=== PATIENT | male | born 1985 | race Caucasian/White ===

== ENCOUNTER 2018-01-01 08:58 | Observation (INO) | payer BC ==
[2018-01-01] MEDS: IOHEXOL 350 MG/ML 10 ML VIAL (for RAD DIAG) IVCONTRAST (08:59)
[2018-01-01 10:02] LABS: AUTOMATED NEUTROPHIL # 4.1 TH/MM3 (1.8-7.7); BASOPHIL % 0.4 % (0.0-2.0); EOSINOPHIL # 0.1 TH/MM3 (0-0.4); HEMATOCRIT 34.6 % (39.0-51.0); HEMO FLAGS DIFF FINAL; HEMOGLOBIN 11.9 GM/DL (13.0-17.0); LYMPH % 25.4 % (9.0-44.0); LYMPHOCYTE # 1.6 TH/MM3 (1.0-4.8); MEAN CELL VOLUME 86.2 FL (80.0-100.0); MEAN CORPUSCULAR HEMOGLOBIN 29.6 PG (27.0-34.0); MEAN CORPUSCULAR HGB CONC 34.4 % (32.0-36.0); MONO % 5.6 % (0.0-8.0); MONOCYTE # 0.3 TH/MM3 (0-0.9); NEUT % 66.6 % (16.0-70.0); PLATELET COUNT 358 TH/MM3 (150-450); RED BLOOD COUNT 4.01 MIL/MM3 (4.50-5.90); RED CELL DISTRIBUTION WIDTH 13.9 % (11.6-17.2); WHITE BLOOD COUNT 6.1 TH/MM3 (4.0-11.0)
[2018-01-01] MEDS: ONDANSETRON HCL 4 MG/2 ML VIAL IV PUSH (10:14)
[2018-01-01] MEDS: HYDROmorphone HCL PF 2 MG/ML VIAL IV PUSH ×2 (10:15→11:40)
[2018-01-01] MEDS: diphenhydrAMINE HCL 50 MG/ML VIAL IV PUSH ×4 (10:15→21:40)
[2018-01-01 10:20] LABS: ALBUMIN 3.9 GM/DL (3.4-5.0); ANION GAP 6 MEQ/L (5-15); AST (GOT) 18 U/L (15-37); BICARBONATE 26.9 MEQ/L (21.0-32.0); BLOOD UREA NITROGEN 16 MG/DL (7-18); CALCIUM 8.8 MG/DL (8.5-10.1); CHLORIDE 107 MEQ/L (98-107); CREATININE 0.81 MG/DL (0.60-1.30); GLOMERULAR FILTRATION RATE 111 ML/MIN (>89); GLUCOSE,RANDOM 93 MG/DL (74-106); POTASSIUM 3.9 MEQ/L (3.5-5.1); SODIUM (NA) 140 MEQ/L (136-145)
[2018-01-01 10:21] LABS: ALT (GPT) 23 U/L (12-78)
[2018-01-01 10:23] LABS: ALKALINE PHOSPHATASE 77 U/L (45-117); PROTHROMBIN TIME - PATIENT 10.8 SEC (9.8-11.6); TOTAL BILIRUBIN ADULT 0.4 MG/DL (0.2-1.0); TOTAL PROTEIN 7.2 GM/DL (6.4-8.2)
[2018-01-01 10:24] LABS: APTT (PATIENT) 71.7 SEC (24.3-30.1); INTERNATIONAL NORMALIZED RATIO 1.1 RATIO
[2018-01-01] MEDS: diphenhydrAMINE HCL 25 MG CAP PO (12:01)
[2018-01-01] MEDS ORDERED: MAGNESIUM HYDROXIDE SUSP 30 ML CUP PO (13:45)
[2018-01-01] MEDS ORDERED: LACTULOSE SYRUP 20 GM/30 ML CUP PO (13:45)
[2018-01-01] MEDS ORDERED: BISACODYL 10 MG SUPP RECTAL (13:45)
[2018-01-01] MEDS ORDERED: ONDANSETRON HCL 4 MG/2 ML VIAL IVP (13:45)
[2018-01-01] MEDS ORDERED: NALOXONE HCL 0.4 MG/ML AMP IV PUSH (13:45)
[2018-01-01] MEDS ORDERED: SENNOSIDES 8.6 MG TAB PO (13:45)
[2018-01-01] MEDS ORDERED: ACETAMINOPHEN 325 MG TAB PO (13:45)
[2018-01-01] MEDS ORDERED: TEMAZEPAM 15 MG CAP PO (13:45)
[2018-01-01] MEDS ORDERED: diphenhydrAMINE HCL 50 MG/ML VIAL IV PUSH (14:00)
[2018-01-01] MEDS ORDERED: HYDROmorphone HCL PF 4 MG/ML VIAL IV PUSH (14:00)
[2018-01-01] MEDS: HYDROmorphone HCL PF 4 MG/ML VIAL IV PUSH ×2 (15:10→18:42)
[2018-01-01] MEDS: SODIUM CHLORIDE 0.9% FLUSH 10 ML FLUSH IV FLUSH (21:40)
[2018-01-01] MEDS: DOCUSATE SODIUM 50 MG/SENNA 8.6 MG TAB PO (21:40)
[2018-01-01] MEDS: ZOLPIDEM TARTRATE 10 MG TAB PO (21:40)
[2018-01-01] MEDS: [UNRECOGNIZED DRUG - REMARK] IV (22:40)
[2018-01-02] MEDS: diphenhydrAMINE HCL 50 MG/ML VIAL IV PUSH ×6 (01:53→20:37)
[2018-01-02] MEDS: HYDROmorphone HCL PF 4 MG/ML VIAL IV PUSH ×3 (01:54→08:23)
[2018-01-02] MEDS ORDERED: [UNRECOGNIZED DRUG - OTHER] IV (06:00)
[2018-01-02 07:00] LABS: AUTOMATED NEUTROPHIL # 3.2 TH/MM3 (1.8-7.7); BASOPHIL % 0.4 % (0.0-2.0); EOSINOPHIL # 0.2 TH/MM3 (0-0.4); EOSINOPHIL % 3.1 % (0.0-4.0); HEMATOCRIT 37.3 % (39.0-51.0); HEMO FLAGS DIFF FINAL; HEMOGLOBIN 12.5 GM/DL (13.0-17.0); LYMPH % 39.7 % (9.0-44.0); LYMPHOCYTE # 2.6 TH/MM3 (1.0-4.8); MEAN CELL VOLUME 87.1 FL (80.0-100.0); MEAN CORPUSCULAR HEMOGLOBIN 29.3 PG (27.0-34.0); MEAN CORPUSCULAR HGB CONC 33.6 % (32.0-36.0); MONO % 6.8 % (0.0-8.0); MONOCYTE # 0.4 TH/MM3 (0-0.9); PLATELET COUNT 367 TH/MM3 (150-450); RED BLOOD COUNT 4.28 MIL/MM3 (4.50-5.90); RED CELL DISTRIBUTION WIDTH 14.4 % (11.6-17.2); WHITE BLOOD COUNT 6.4 TH/MM3 (4.0-11.0)
[2018-01-02 07:26] LABS: ANION GAP 7 MEQ/L (5-15); BICARBONATE 28.6 MEQ/L (21.0-32.0); BLOOD UREA NITROGEN 21 MG/DL (7-18); CALCIUM 9.5 MG/DL (8.5-10.1); CHLORIDE 103 MEQ/L (98-107); CREATININE 0.96 MG/DL (0.60-1.30); GLOMERULAR FILTRATION RATE 91 ML/MIN (>89); GLUCOSE,RANDOM 92 MG/DL (74-106); POTASSIUM 3.9 MEQ/L (3.5-5.1); SODIUM (NA) 139 MEQ/L (136-145)
[2018-01-02 07:32] LABS: APTT (PATIENT) 30.6 SEC (24.3-30.1)
[2018-01-02] MEDS: [UNRECOGNIZED DRUG - REMARK] IV (07:38)
[2018-01-02] MEDS: SODIUM CHLORIDE 0.9% FLUSH 10 ML FLUSH IV FLUSH ×8 (08:22→20:36)
[2018-01-02] MEDS: DOCUSATE SODIUM 50 MG/SENNA 8.6 MG TAB PO ×2 (08:22→22:35)
[2018-01-02] MEDS: HYDROmorphone HCL PF 2 MG/ML VIAL IV PUSH ×6 (11:28→23:06)
[2018-01-02] MEDS ORDERED: ANTIHEMOPHILIC FACTOR VIII IV (21:00)
[2018-01-02] MEDS ORDERED: [UNRECOGNIZED DRUG - REMARK] IV (21:00)
[2018-01-02] MEDS: oxyCODONE HCL 20 MG CONTROLLED RELEASE TAB PO (22:35)
[2018-01-02] MEDS: ANTIHEMOPHILIC FACTOR VIII IV (22:36)
[2018-01-02] MEDS: ZOLPIDEM TARTRATE 10 MG TAB PO (23:05)
[2018-01-03] MEDS: HYDROmorphone HCL PF 2 MG/ML VIAL IV PUSH ×4 (02:40→11:31)
[2018-01-03] MEDS: diphenhydrAMINE HCL 50 MG/ML VIAL IV PUSH ×2 (02:40→08:00)
[2018-01-03] MEDS: SODIUM CHLORIDE 0.9% FLUSH 10 ML FLUSH IV FLUSH ×3 (07:59→11:30)
[2018-01-03] MEDS: DOCUSATE SODIUM 50 MG/SENNA 8.6 MG TAB PO (09:33)
[2018-01-03] MEDS: ANTIHEMOPHILIC FACTOR VIII IV (09:33)
[2018-01-03] MEDS: oxyCODONE HCL 40 MG CONTROLLED RELEASE TAB PO (10:05)
[2018-01-05 11:50] LABS: FACTOR VIII(8) ACTIVITY-I 66 (50-180); FACTOR VIII(8) INHIB EIA NEGATIVE (NEGATIVE); NIJMEGEN ASSAY ND BETHESDA (<0.6)
== END 2018-01-03 12:49 | disposition home or self-care (01) ==
LOC: NEPE 08:58 → NEDA 12:46 → NEPHCDU 14:17
DX: M25.022 Hemarthrosis, left elbow (principal); S30.1XXA Contusion of abdominal wall, initial encounter; D66 Hereditary factor VIII deficiency; Z87.442 Personal history of urinary calculi; Z96.652 Presence of left artificial knee joint
CPT/HCPCS: 73080; 73221; 74177; 80048; 80053; 85025; 85240; 85335; 85610; 85730; 96374; 96375; 96376; 99285-25

== ENCOUNTER 2018-01-23 19:49 | Observation (INO) | payer BC ==
[~2018-01-23 19:49] MED LIST: AMBI10TA PO; ANTI IV; OXYC-395 PO; OXYC40TA20 PO
[2018-01-23 19:52] VITALS: BP 154/76; PULSE 100; RESP 18; TEMP 98.7; O2SAT 100
--- NOTE | 2018-01-23 20:08 | PD ---
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 The patient reports having had several hemarthroses in the past. This 1 started spontaneously 2 days ago. He gave himself recombinant factor VIII (Advate) over the last 3 days, last dose was earlier this morning. His pain is severe, 10 out of 10, constant, sharp/pressure-like, worse with movements, uncontrolled with at home pain medications. He denies fevers. No abdominal pain. No pain in any other joint or extremity. PFSH Past Medical History Blood Disorders: Yes (Hemophelia Type A) Cancer: No Cardiovascular Problems: No Diminished Hearing: No Endocrine: No Genitourinary: No Implanted Vascular Access Dvce: Yes (right leg) Musculoskeletal: No Neurologic: No Psychiatric: No Reproductive: No Respiratory: No Immunizations Current: Yes Past Surgical History Genitourinary Surgery: Yes (KIDNEY STONES) Other Surgery: Yes (left knee (X3) & right elbow (X2)) Social History Alcohol Use: Yes Tobacco Use: No Substance Use: No Allergies-Medications (Allergen,Severity, Reaction): Coded Allergies: NSAIDS (Non-Steroidal Anti-Inflamma (Verified Allergy, Intermediate, ) aspirin (Verified Allergy, Intermediate, 01/23/18) codeine (Verified Allergy, Intermediate, 01/23/18) morphine (Verified Allergy, Intermediate, 01/23/18) Sulfa (Sulfonamide Antibiotics) (Verified Allergy, Unknown, 01/23/18) Can't have d/t the hemophelia; no reaction Reported Meds & Prescriptions Reported Meds & Active Scripts Active Oxycodone (Oxycodone HCl) 10 Mg Tab 10 Mg PO Q4H PRN 5 Days Ambien (Zolpidem Tartrate) 10 Mg Tab 10 Mg PO HS PRN Oxycontin (Oxycodone HCl) 40 Mg Tab.er.12h 40 Mg PO Q12HR Advate Inj (Antihemophilic Factor Rahf-Pfm Inj) 1,500 (+/-) Unit Range Inj 3, 000 Unit IV DAILY 7 Days Review of Systems Except as stated in HPI: all other systems reviewed are Neg Physical Exam Narrative GENERAL: Well-developed, well-nourished, no apparent distress. SKIN: Focused skin assessment warm/dry. HEAD: Atraumatic. Normocephalic. EYES: Pupils equal and round. No scleral icterus. No injection or drainage. ENT: No nasal bleeding or discharge. Mucous membranes pink and moist. NECK: Trachea midline. No JVD. CARDIOVASCULAR: Regular rate and rhythm. No murmur appreciated. Distal radial pulses are brisk and equal bilaterally. RESPIRATORY: No accessory muscle use. Clear to auscultation. Breath sounds equal bilaterally. GASTROINTESTINAL: Abdomen soft, non-tender, nondistended. Hepatic and splenic margins not palpable. MUSCULOSKELETAL: Left elbow with moderate diffuse edema with significant tenderness, no warmth erythema, limited range of motion secondary to pain. The rest of his joints and extremities are without deformity, without tenderness, with normal range of motion. NEUROLOGICAL: Awake and alert. No obvious cranial nerve deficits. Motor grossly within normal limits. Normal speech. PSYCHIATRIC: Appropriate mood and affect; insight and judgment normal. Data Data Last Documented VS Vital Signs Date Time Temp Pulse Resp B/P (MAP) Pulse Ox O2 Delivery O2 Flow Rate FiO2 01/23/18 20:21 98 Room Air 01/23/18 19:52 98.7 100 18 154/76 (102) Orders Orders Complete Blood Count With Diff (01/23/18 20:05) Comprehensive Metabolic Panel (01/23/18 20:05) Prothrombin Time / Inr (Pt) (01/23/18 20:05) Act Partial Throm Time (Ptt) (01/23/18 20:05) Iv Access Insert/Monitor (01/23/18 20:05) Ecg Monitoring (01/23/18 20:05) Oximetry (01/23/18 20:05) Sodium Chloride 0.9% Flush (Ns Flush) (01/23/18 20:15) Hydromorphone Pf Inj (Dilaudid Pf Inj) (01/23/18 20:15) Factor Viii (8) Activity Ref (01/23/18 20:25) Factor Viii (8) Inactivator (01/23/18 20:25) Consult Medical Oncology (01/23/18 ) Diphenhydramine Inj (Benadryl Inj) (01/23/18 20:30) Hydromorphone Pf Inj (Dilaudid Pf Inj) (01/23/18 21:15) Potassium Chloride (Kcl) (01/23/18 21:30) Labs Laboratory Tests Test 01/23/18 20:18 White Blood Count 9.1 TH/MM3 Red Blood Count 3.89 MIL/MM3 Hemoglobin 11.3 GM/DL Hematocrit 33.6 % Mean Corpuscular Volume 86.5 FL Mean Corpuscular Hemoglobin 29.0 PG Mean Corpuscular Hemoglobin Concent 33.5 % Red Cell Distribution Width 14.1 % Platelet Count 286 TH/MM3 Mean Platelet Volume 7.5 FL Neutrophils (%) (Auto) 62.6 % Lymphocytes (%) (Auto) 29.1 % Monocytes (%) (Auto) 5.5 % Eosinophils (%) (Auto) 2.3 % Basophils (%) (Auto) 0.5 % Neutrophils # (Auto) 5.7 TH/MM3 Lymphocytes # (Auto) 2.6 TH/MM3 Monocytes # (Auto) 0.5 TH/MM3 Eosinophils # (Auto) 0.2 TH/MM3 Basophils # (Auto) 0.0 TH/MM3 CBC Comment DIFF FINAL Differential Comment Blood Urea Nitrogen 15 MG/DL Creatinine 0.80 MG/DL Random Glucose 78 MG/DL Total Protein 6.2 GM/DL Albumin 3.3 GM/DL Calcium Level 7.5 MG/DL Alkaline Phosphatase 70 U/L Aspartate Amino Transf (AST/SGOT) 15 U/L Alanine Aminotransferase (ALT/SGPT) 18 U/L Total Bilirubin 0.2 MG/DL Sodium Level 144 MEQ/L Potassium Level 3.1 MEQ/L Chloride Level 112 MEQ/L Carbon Dioxide Level 24.5 MEQ/L Anion Gap 8 MEQ/L Estimat Glomerular Filtration Rate 113 ML/MIN [facility] Medical Decision Making Medical Screen Exam Complete: Yes Emergency Medical Condition: Yes Medical Record Reviewed: Yes Differential Diagnosis Hemarthrosis, septic arthritis less likely Narrative Course Shortly after I evaluated the patient I discussed the case with on-call grader green meat/oncologist Dr. Brunner who is somewhat familiar with the patient. He recommends administering the patient's dose of Advate every 12 hours, and the patient's grader green meat Dr. Morrison will evaluate him in the morning. Vital signs reviewed. CBC: WBC 9.1, hemoglobin 11.3, hematocrit 33.6, platelets 286. CMP is remarkable for potassium 3.1 which was replaced orally. The patient administered his own Advate that he brought with him, 3064 units, at around 9:00 PM. Case discussed with hospitalist Dr. Samuels who will admit the patient to his service. Diagnosis Primary Impression: Hemarthrosis involving elbow joint Qualified Codes: M25.022 - Hemarthrosis, left elbow Additional Impression: Hemophilia A Admitting Information Admitting Physician Requests: Observation Jose Manuel Gustafson MD January 23, 2018 20:07
[2018-01-23] MEDS ORDERED: HYDROmorphone HCL PF 2 MG/ML VIAL IV PUSH ONE ×2 (20:15→21:15)
[2018-01-23] MEDS ORDERED: SODIUM CHLORIDE 0.9% FLUSH 10 ML FLUSH IV FLUSH PRN ×2 (20:15→21:45)
[2018-01-23 20:21] VITALS: O2SAT 98
[2018-01-23] MEDS ORDERED: diphenhydrAMINE HCL 50 MG/ML VIAL IV PUSH ONE (20:30)
[2018-01-23 20:32] LABS: AUTOMATED NEUTROPHIL # 5.7 TH/MM3 (1.8-7.7); BASOPHIL % 0.5 % (0.0-2.0); EOSINOPHIL # 0.2 TH/MM3 (0-0.4); EOSINOPHIL % 2.3 % (0.0-4.0); HEMATOCRIT 33.6 % (39.0-51.0); HEMOGLOBIN 11.3 GM/DL (13.0-17.0); LYMPH % 29.1 % (9.0-44.0); LYMPHOCYTE # 2.6 TH/MM3 (1.0-4.8); MEAN CELL VOLUME 86.5 FL (80.0-100.0); MEAN CORPUSCULAR HGB CONC 33.5 % (32.0-36.0); MEAN PLATELET VOLUME 7.5 FL (7.0-11.0); MONO % 5.5 % (0.0-8.0); MONOCYTE # 0.5 TH/MM3 (0-0.9); NEUT % 62.6 % (16.0-70.0); PLATELET COUNT 286 TH/MM3 (150-450); RED BLOOD COUNT 3.89 MIL/MM3 (4.50-5.90); RED CELL DISTRIBUTION WIDTH 14.1 % (11.6-17.2); WHITE BLOOD COUNT 9.1 TH/MM3 (4.0-11.0)
[2018-01-23 21:19] LABS: ALBUMIN 3.3 GM/DL (3.4-5.0); ALT (GPT) 18 U/L (12-78); AST (GOT) 15 U/L (15-37); BICARBONATE 24.5 MEQ/L (21.0-32.0); BLOOD UREA NITROGEN 15 MG/DL (7-18); CALCIUM 7.5 MG/DL (8.5-10.1); CHLORIDE 112 MEQ/L (98-107); GLOMERULAR FILTRATION RATE 113 ML/MIN (>89); GLUCOSE,RANDOM 78 MG/DL (74-106); SODIUM (NA) 144 MEQ/L (136-145)
[2018-01-23 21:22] LABS: ALKALINE PHOSPHATASE 70 U/L (45-117); TOTAL BILIRUBIN ADULT 0.2 MG/DL (0.2-1.0); TOTAL PROTEIN 6.2 GM/DL (6.4-8.2)
[2018-01-23] MEDS ORDERED: POTASSIUM CHLORIDE 20 MEQ CONTROLLED RELEASE TAB PO ONE (21:30)
[2018-01-23] MEDS ORDERED: LACTULOSE SYRUP 20 GM/30 ML CUP PO PRN (21:45)
[2018-01-23] MEDS ORDERED: MAGNESIUM HYDROXIDE SUSP 30 ML CUP PO PRN (21:45)
[2018-01-23] MEDS ORDERED: NALOXONE HCL 0.4 MG/ML AMP IV PUSH PRN (21:45)
[2018-01-23] MEDS ORDERED: ACETAMINOPHEN 325 MG TAB PO PRN (21:45)
[2018-01-23] MEDS ORDERED: SENNOSIDES 8.6 MG TAB PO PRN (21:45)
[2018-01-23] MEDS ORDERED: ACETAMINOPHEN/HYDROcodone 325 MG/7.5 MG TAB PO PRN (21:45)
[2018-01-23] MEDS ORDERED: BISACODYL 10 MG SUPP RECTAL PRN (21:45)
[2018-01-23] MEDS ORDERED: HYDROmorphone HCL PF 0.5 MG/0.5 ML SYRINGE IV PUSH PRN (22:00)
--- NOTE | 2018-01-23 22:12 | HHI.HP ---
[facility] Primary [facility] Physician No Primary Care Physician Admission Diagnosis Hemarthrosis, hemophilia A Diagnoses: (1) Hemophilia A (2) Hemarthrosis involving elbow joint Chief Complaint: left elbow pain Travel History International Travel<30 Days: No Contact w/Intl Traveler <30 Da: No Traveled to Known Affected Are: No History of Present Illness Mr. Colindres is a 32 y/o male with a history of hemophilia type a, hemarthrosis, and recent hospitalization for left abdominal wall hematoma who presented to the emergency room on 01/23/2018 for intractable left elbow pain. The patient states that he has been having symptoms since discharge from the hospital on 01/03/18, but the pain has not been manageable with his home medications over the past few days. He reports his left elbow pain is severe, sharp, 10 out of 10, worse with movement. He tells me he takes OxyContin CR 40 mg p.o. every 12 hours and OxyContin IR 40 mg every 4 hours as needed for pain. He states he has continued to have pain despite this regimen. The patient reports that the abdominal pain related to the left abdominal wall hematoma has resolved since discharge. The ER physician spoke with Dr. Brunner, oncologist on-call. The patient sees Dr. Morrison as an outpatient. Dr. Brunner recommended giving Advate 3000 units twice daily for this exacerbation. Review of Systems Except as stated in HPI: all other systems reviewed are Neg Past Family Social History Past Medical History Hemophilia A Hemarthrosis Recent hospitalization for left iliacus hematoma Past Surgical History Left elbow arthroscopic surgery 2 Left knee surgeries 3 with 1 total knee replacement Right leg [id number] Ureteroscopy with extraction of nephrolithiasis in 2016 . Reported Medications Reported Meds & Active Scripts Active Oxycodone (Oxycodone HCl) 10 Mg Tab 10 Mg PO Q4H PRN 5 Days Ambien (Zolpidem Tartrate) 10 Mg Tab 10 Mg PO HS PRN Oxycontin (Oxycodone HCl) 40 Mg Tab.er.12h 40 Mg PO Q12HR Advate Inj (Antihemophilic Factor Rahf-Pfm Inj) 1,500 (+/-) Unit Range Inj 3, 000 Unit IV DAILY 7 Days . Allergies: Coded Allergies: NSAIDS (Non-Steroidal Anti-Inflamma (Verified Allergy, Intermediate, ) aspirin (Verified Allergy, Intermediate, 01/23/18) codeine (Verified Allergy, Intermediate, 01/23/18) morphine (Verified Allergy, Intermediate, 01/23/18) Sulfa (Sulfonamide Antibiotics) (Verified Allergy, Unknown, 01/23/18) Can't have d/t the hemophelia; no reaction Family History 3 uncles from complications related to hemophilia, 2 sisters are carriers of hemophilia, he has a brother with hemophilia . Social History Tobacco: Smoked for about 1-1/2 years 4-5 years ago -about 2 cigarettes a day Alcohol: Rare social use Illicit Drugs: Denies . Physical Exam Vital Signs Vital Signs Date Time Temp Pulse Resp B/P (MAP) Pulse Ox O2 Delivery O2 Flow Rate FiO2 01/23/18 20:21 98 Room Air 01/23/18 19:52 98.7 100 18 154/76 (102) 100 Physical Exam GENERAL: This is a well-nourished, well-developed patient, who is writhing in pain. SKIN: No rashes. Cool and dry. HEAD: Atraumatic. Normocephalic. EYES: No scleral icterus. No injection or drainage. ENT: Nose without bleeding, purulent drainage. Airway patent. NECK: Trachea midline. No JVD or lymphadenopathy. Supple, nontender, no meningeal signs. CARDIOVASCULAR: Mildly tachycardic rate and normal rhythm without murmurs, gallops, or rubs. RESPIRATORY: Clear to auscultation. Breath sounds equal bilaterally. No wheezes , rales, or rhonchi. GASTROINTESTINAL: Abdomen soft, non-tender, nondistended. No guarding. MUSCULOSKELETAL: Left elbow with moderate edema and significant tenderness, ROM limited secondary to pain. No warmth noted with palpation of the area. NEUROLOGICAL: Awake and alert. Normal speech. . Laboratory Laboratory Tests Test 01/23/18 20:18 01/23/18 21:20 White Blood Count 9.1 Red Blood Count 3.89 Hemoglobin 11.3 Hematocrit 33.6 Mean Corpuscular Volume 86.5 Mean Corpuscular Hemoglobin 29.0 Mean Corpuscular Hemoglobin Concent 33.5 Red Cell Distribution Width 14.1 Platelet Count 286 Mean Platelet Volume 7.5 Neutrophils (%) (Auto) 62.6 Lymphocytes (%) (Auto) 29.1 Monocytes (%) (Auto) 5.5 Eosinophils (%) (Auto) 2.3 Basophils (%) (Auto) 0.5 Neutrophils # (Auto) 5.7 Lymphocytes # (Auto) 2.6 Monocytes # (Auto) 0.5 Eosinophils # (Auto) 0.2 Basophils # (Auto) 0.0 CBC Comment DIFF FINAL Differential Comment Blood Urea Nitrogen 15 Creatinine 0.80 Random Glucose 78 Total Protein 6.2 Albumin 3.3 Calcium Level 7.5 Alkaline Phosphatase 70 Aspartate Amino Transf (AST/SGOT) 15 Alanine Aminotransferase (ALT/SGPT) 18 Total Bilirubin 0.2 Sodium Level 144 Potassium Level 3.1 Chloride Level 112 Carbon Dioxide Level 24.5 Anion Gap 8 Estimat Glomerular Filtration Rate 113 Result Diagram: 01/23/18201701/23/182017 Caprini VTE Risk Assessment Caprini VTE Risk Assessment: No/Low Risk (score <= 1) Caprini Risk Assessment Model Point Value = 1 Point Value = 2 Point Value = 3 Point Value = 5 Age 41-60 Minor surgery BMI > 25 kg/m2 Swollen legs Varicose veins or History of unexplained or recurrent spontaneous Oral contraceptives or hormone replacement Sepsis (< 1 month) Serious lung disease, including pneumonia (< 1 month) Abnormal pulmonary function Acute myocardial infarction Congestive heart failure (< 1 month) History of inflammatory bowel disease Medical patient at bed rest Age 61-74 Arthroscopic surgery Major open surgery (> 45 min) Laparoscopic surgery (> 45 min) Malignancy Confined to bed (> 72 hours) Immobilizing plaster cast Central venous access Age >= 75 History of VTE Family history of VTE Factor V Leiden Prothrombin [id number] Lupus anticoagulant Anticardiolipin antibodies Elevated serum homocysteine Heparin-induced thrombocytopenia Other congenital or acquired thrombophilia Stroke (< 1 month) Elective arthroplasty Hip, pelvis, or leg fracture Acute spinal cord injury (< 1 month) Prophylaxis Regimen Total Risk Factor Score Risk Level Prophylaxis Regimen 0-1 Low Early ambulation 2 Moderate Order ONE of the following: *Sequential Compression Device (SCD) *Heparin 5000 units SQ BID 3-4 Higher Order ONE of the following medications: *Heparin 5000 units SQ TID *Enoxaparin/Lovenox 40 mg SQ daily (WT < 150 kg, CrCl > 30 mL/min) *Enoxaparin/Lovenox 30 mg SQ daily (WT < 150 kg, CrCl > 10-29 mL/min) *Enoxaparin/Lovenox 30 mg SQ BID (WT < 150 kg, CrCl > 30 mL/min) AND/OR *Sequential Compression Device (SCD) 5 or more Highest Order ONE of the following medications: *Heparin 5000 units SQ TID (Preferred with Epidurals) *Enoxaparin/Lovenox 40 mg SQ daily (WT < 150 kg, CrCl > 30 mL/min) *Enoxaparin/Lovenox 30 mg SQ daily (WT < 150 kg, CrCl > 10-29 mL/min) *Enoxaparin/Lovenox 30 mg SQ BID (WT < 150 kg, CrCl > 30 mL/min) AND *Sequential Compression Device (SCD) Assessment and Plan Problem List: (1) 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 Colindres is a 32 y/o male with a history of hemophilia type a, hemarthrosis, and recent hospitalization for left abdominal wall hematoma who presented to the emergency room on 01/23/2018 for intractable left elbow pain. Hemarthrosis involving left elbow joint - The ER physician spoke with Dr. Brunner, oncologist on-call. Dr. Brunner recommended giving Advate 3000 units twice daily for this exacerbation - patient received first dose at 2100 in ED - The patient sees Dr. Morrison as an outpatient. She will follow in a.m. - appreciate assistance - Pain Management: patient reports a high tolerance for narcotics - states he takes Oxy CR 40 mg q12h and Oxy IR 20 mg x 2 tabs (= 40 mg) q4h PRN pain without relief at home - pain management will be challenging - The patient states he received Dilaudid 2 mg IV 1 dose in the ER about an hour before my visit with about 10 minutes of "taking the edge off" his pain but not significantly reducing his pain level - Restart Oxy CR 40 mg q12h p.o. with Dilaudid 2 mg IV q2h PRN pain 6-10 - patient was requesting Dilaudid 4 mg IV every 2 hours because he required this during his last hospitalization. However, upon review of the medical record, he was not taking Oxy CR at that time. - I have ordered cardiac telemetry to monitor his heart rhythm and rate given the large doses of pain medication required for pain management. Pruritus - Patient requesting IV Benadryl as previously ordered during last hospitalization for Dilaudid associated itching - Diphenhydramine 50 mg IV every 4 hours as needed for pruritus Discussed Condition With Patient and Dr. Samuels . Problem Qualifiers (1) Hemarthrosis involving elbow joint: Qualified Codes: M25.022 - Hemarthrosis, left elbow Lexie Robles January 23, 2018 22:12
[2018-01-23] MEDS ORDERED: ZOLPIDEM TARTRATE 10 MG TAB PO PRN (22:15)
[2018-01-23] MEDS: diphenhydrAMINE HCL 50 MG/ML VIAL IV PUSH PRN (22:57)
[2018-01-23] MEDS: HYDROmorphone HCL PF 2 MG/ML VIAL IV PUSH PRN (22:57)
[2018-01-23] MEDS: oxyCODONE HCL 40 MG CONTROLLED RELEASE TAB PO SCH (23:15)
[2018-01-23 23:17] VITALS: BP 136/76; PULSE 78; RESP 16; O2SAT 99
[2018-01-24] VITALS (8 sets, daily range): BP systolic 120–150; BP diastolic 58–85; PULSE 69–89; RESP 16–20; TEMP 97.7–98.7; O2SAT 97–100
[2018-01-24] MEDS: HYDROmorphone HCL PF 2 MG/ML VIAL IV PUSH PRN ×10 (01:06→20:41)
[2018-01-24] MEDS ORDERED: HYDROmorphone HCL PF 2 MG/ML VIAL IV PUSH ONE (02:15)
[2018-01-24] MEDS: diphenhydrAMINE HCL 50 MG/ML VIAL IV PUSH PRN ×5 (03:17→20:41)
[2018-01-24 04:56] LABS: PROTHROMBIN TIME - PATIENT 10.5 SEC (9.8-11.6)
[2018-01-24] MEDS ORDERED: ANTIHEMOPHILIC FACTOR IV SCH (09:00)
[2018-01-24] MEDS: SODIUM CHLORIDE 0.9% FLUSH 10 ML FLUSH IV FLUSH SCH ×2 (09:00→20:48)
[2018-01-24] MEDS ORDERED: ANTIHEMOPHILIC FACTOR VIII IV SCH (09:00)
[2018-01-24] MEDS: oxyCODONE HCL 40 MG CONTROLLED RELEASE TAB PO SCH ×2 (09:18→20:46)
--- NOTE | 2018-01-24 10:47 | HHI.PR ---
Subjective Remarks Follow-up hemophilia, hemarthrosis. Patient reports ongoing pain. States that the Dilaudid is barely taking the edge off the pain. Objective Vitals Vital Signs Date Time Temp Pulse Resp B/P (MAP) Pulse Ox O2 Delivery O2 Flow Rate FiO2 01/24/18 10:29 20 01/24/18 10:29 20 01/24/18 07:13 97.7 69 18 131/77 (95) 100 01/24/18 05:59 18 01/24/18 04:26 98.6 74 16 120/58 (78) 100 01/24/18 02:47 18 01/23/18 23:48 18 01/23/18 23:17 78 16 136/76 (96) 99 01/23/18 20:21 98 Room Air 01/23/18 19:52 98.7 100 18 154/76 (102) 100 I/O 01/23/18 01/23/18 01/23/18 01/24/18 01/24/18 01/24/18 06:59 14:59 22:59 06:59 14:59 22:59 Intake Total 200 ml Balance 200 ml Intake Oral 200 ml Result Diagram: 01/23/18201701/23/182017 Objective Remarks General: No acute distress. Heart: Regular rate and rhythm. No murmur. Lungs: Clear to auscultation bilaterally. No wheezes, rales, or rhonchi. Breathing is nonlabored. Abdomen: Soft, nontender, nondistended. Extremities: No lower extremity edema. Left elbow with swelling and tenderness. Psych: Alert and oriented. Neuro: Normal speech. No focal deficits noted. 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 Hemophilia: Hematology consult is pending. Transfer to oncology unit. Continue Advate. 2. Hemarthrosis, left elbow: Continue pain control. Had imaging done 01/02/18. 3. Pruritus: Continue Benadryl as needed. 4. DVT prophylaxis: SCDs. Discharge Planning Pending hematology clearance. Problem Qualifiers (1) Hemarthrosis involving elbow joint: Qualified Codes: M25.022 - Hemarthrosis, left elbow Nic Corrigan MD January 24, 2018 10:47
[2018-01-24 14:09] LABS: BICARBONATE 29.3 MEQ/L (21.0-32.0); CALCIUM 8.7 MG/DL (8.5-10.1); CREATININE 0.84 MG/DL (0.60-1.30)
[2018-01-24 14:52] LABS: AUTOMATED NEUTROPHIL # 4.5 TH/MM3 (1.8-7.7); BASOPHIL % 0.5 % (0.0-2.0); EOSINOPHIL # 0.2 TH/MM3 (0-0.4); EOSINOPHIL % 2.5 % (0.0-4.0); HEMATOCRIT 36.8 % (39.0-51.0); HEMOGLOBIN 12.4 GM/DL (13.0-17.0); LYMPH % 22.4 % (9.0-44.0); LYMPHOCYTE # 1.5 TH/MM3 (1.0-4.8); MEAN CELL VOLUME 86.7 FL (80.0-100.0); MEAN CORPUSCULAR HEMOGLOBIN 29.2 PG (27.0-34.0); MEAN CORPUSCULAR HGB CONC 33.6 % (32.0-36.0); MEAN PLATELET VOLUME 7.4 FL (7.0-11.0); MONO % 7.7 % (0.0-8.0); MONOCYTE # 0.5 TH/MM3 (0-0.9); NEUT % 66.9 % (16.0-70.0); PLATELET COUNT 284 TH/MM3 (150-450); RED BLOOD COUNT 4.24 MIL/MM3 (4.50-5.90); RED CELL DISTRIBUTION WIDTH 14.3 % (11.6-17.2); WHITE BLOOD COUNT 6.7 TH/MM3 (4.0-11.0)
[2018-01-24] MEDS ORDERED: ANTIHEMOPHILIC FACTOR VIII IV ONE (19:15)
--- NOTE | 2018-01-24 19:19 | HHI.DCPOC ---
Discharge Care Plan Diagnosis: (1) Hemophilia A (2) Hemarthrosis involving elbow joint Goals to Promote Your Health * To prevent worsening of your condition and complications * To maintain your health at the optimal level Directions to Meet Your Goals Take your medications as prescribed Follow your dietary instruction Follow activity as directed Keep your appointments as scheduled Take your immunizations and boosters as scheduled If your symptoms worsen call your PCP, if no PCP go to Urgent Care Center or Emergency Room Smoking is Dangerous to Your Health. Avoid second hand smoke Call the 24-hour hour crisis hotline for domestic abuse at Nic Corrigan MD January 24, 2018 19:19
[2018-01-24] MEDS ORDERED: LACT10SO PO (19:35)
[2018-01-24] MEDS ORDERED: ANTIHEMOPHILIC FACTOR IV ONE (20:15)
--- NOTE | 2018-01-24 21:38 | MB ---
cc: Fabiola Morrison MD, Ruby Anne E MD [place],Nic Bethea MD DATE: 01/24/2018 REFERRING PHYSICIAN: Nic Corrigan MD CHIEF COMPLAINT: Dr. Corrigan requests a consultation for Mr. Colindres regarding hemophilia A and acute left elbow bleed. HISTORY OF PRESENT ILLNESS: Mr. 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 He is currently using Advate 3000 units 3 times a week. Apparently, despite this, he has had breakthrough bleeding. On our last visit, we discussed switching him to a long-acting extended half-life factor. He was denied by his insurance. We discussed appealing this, as he describes having bleeding events despite the factor administration 3 times a week. Over the last week prior to his presentation, and 2 days prior to his presentation, he had severe more swollen bleed, a more prominent bleed in his left elbow. He has received a dose of factor that he brought himself, a dose of factor in the morning and 1 more dose this afternoon. I anticipate that he will need daily treatment for at least 3-5 days for the acute elbow bleed. He has had repeated bleed in the left elbow. He has the issue of chronic pain. We have the discrepancy of Dr. Brar who was managing his chronic pain previously. Dr. Brar had prescribed fentanyl 25 mcg patch q. 3 days with breakthrough medication that was recently switched to Lortab 10/325. While admitted in the hospital, he claimed that his pain regimen was OxyContin 60 mg q. 12 hours. His pain regimen was taken on anne without benefit of previous record from his prescriber. He was started on a low dose of OxyContin 20 mg q. 12 hours during his last hospitalization. By the time of discharged OxyContin 40 mg q. 12 hours, 12 tablets and Oxycodone 10 mg for breakthrough #20 were dispensed. While in clinic, he reports needing pain medication to be filled before he can make it to his pain doctor's appointment. He claims to have a pain doctor. A prescription of OxyContin 40 mg q. 12 hours, #60 tablets and oxycodone 20 mg q. 8 hours p.r.n. for breakthrough, #60 tablets were dispensed. He reports taking the Oxycodone 10 mg, 2 tablets at a time. For this reason oxycodone 20mg was prescribed for breakthrough. It is interesting to note, his pain requirement has escalated in two weeks, now that he was using oxycodone 20 mg tablets, 2 tablets at a time, for his breakthrough pain medication. He claims to be out of the Oxycodone 20mg #60 due to increase pain, which worsen acutely over 2 days. He claims to use Dilaudid 4mg IV for breakthrough medication in the hospital. During the consultation, we focused on his hemophiliac bleed symptoms. PAST MEDICAL HISTORY: 1. Hemophilia A. 2. Multiple hemophiliac arthropathy. PAST SURGICAL HISTORY: 1. Left knee surgery/left knee replacement. 2. Left elbow surgery. 3. Infusaport placed in the right thigh 4. Kidney stone extraction. ALLERGIES: CODEINE AND MORPHINE. FAMILY HISTORY: Mother is a carrier. He has 3 uncles who are hemophiliac. He has a brother with severe hemophilia. SOCIAL HISTORY: He is , lives with his children and . He has a job, works as a [employer]. He smokes 2 cigarettes per day. He drinks alcohol rarely. He denies any illicit drug use. PHYSICAL EXAMINATION: VITAL SIGNS: Temperature 98.4, heart rate 87, respiratory rate 20, blood pressure 144/85, saturation 100%. GENERAL: Mr. Colindres is a well-developed, well-nourished man. He is short-statured. He has multiple hemophiliac arthropathies. HEENT: His pupils are round, reactive to light and accommodation. Conjunctivae are pink. Oropharynx is clear. NECK: Supple. LUNGS: Clear to auscultation. CARDIOVASCULAR: Reveals a normal rate and rhythm. ABDOMEN: Benign. EXTREMITIES: Lower extremities with trace edema. Left elbow with swelling, warmth and limited range of motion. Left knee scar. LABORATORY DATA: Significant for a mild normocytic anemia. Chemistry is normal. ASSESSMENT AND PLAN: Mr. Colindres is a 32-year-old man with severe hemophilia A, multiple hemophiliac arthropathy. He was recently admitted for a muscle bleed that was treated. He presents with worsening bleed of his left elbow. He had worsening symptoms over the last 2 days that prompted him to come in, despite secondary prophylaxis. He has infusion of factors 3 times a week. We had a lengthy discussion about appealing the insurance company's decision to deny Nuwiq, which has an extensive half-life factor. We discussed the risk and benefit of Nuwiq. We need to do formal pharmacokinetic study to make sure that his factor VIII activity level does not fall below 2% ideally. I defer to his chronic pain physician for management of his chronic pain and narcotic pain medication. He was given a prescription for a month's worth of oxycodone and OxyContin. MD VANI Wyman//adilia , 07:33 PM , 08:22 PM MTDNeema
[2018-01-25] MEDS ORDERED: ANTIHEMOPHILIC FACTOR IV SCH (09:00)
== END 2018-01-24 21:30 | disposition home or self-care (01) ==
LOC: NEPC 19:49 → NEDA 21:36 → NEPGCP 22:21 → HCIN 01-24 10:57
PROVIDERS: ADMIT Family Medicine; ATTEND Family Medicine
DX: M25.022 Hemarthrosis, left elbow (principal); D66 Hereditary factor VIII deficiency; M36.2 Hemophilic arthropathy; L29.9 Pruritus, unspecified; G89.29 Other chronic pain; F17.210 Nicotine dependence, cigarettes, uncomplicated
CPT/HCPCS: 80048; 80053; 85025; 85240; 85335; 85610; 85730; 96374; 96375; 96376; 99285; G0378; J1170; J1200

== ENCOUNTER 2018-04-30 19:47 | Observation (INO) ==
[2018-04-30] MEDS ORDERED: HYDROmorphone PF Inj 2 MG/ML Vial IV.PUSH ONE (22:03)
--- NOTE | 2018-04-30 22:13 | ED ---
HPI General Chief complaint: Medical Clearance Stated complaint: Medical Time Seen by Provider: 04/30/18 21:21 Source: patient Limitations: no limitations History of Present Illness HPI narrative: The patient is a 32 year old male who presents to the [facility] emergency department with a history of left elbow pain that he reports began again on Tuesday. He reports it has been associated with swelling. He reports that he has a joint bleed into the left elbow. He reports that he has had recurrent problems with this related to being a hemophiliac. 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 He reports that he is followed by Dr. Morrison for his hematologic care. He reports that about a month and a half ago he lost his insurance related to a job change. He reports that he has no factors at home. He reports that on Tuesday of last week he developed swelling of the left elbow and was seen in the emergency department on . The plan was for admission for factor administration, however he had to leave due to an emergency at home. He reports that he was given both a short acting and a long- acting factor which helped briefly until Tuesday. He denies having any trauma to the left elbow. He denies having a primary care physician currently. On review of systems otherwise, the patient denies having any other joint swelling. He denies having any fevers or chills, neck pain, chest pain, shortness of breath, abdominal pain, vomiting, diarrhea, urinary symptoms, or neurologic symptoms. The patient incidentally on review of systems reports having a cough with congestion that has been present for the last 3-4 days. Related Data Home Medications Medication Instructions Recorded Confirmed antihemophil FVIII,full length See Label Instructions .ROUTE 04/27/18 04/27/18 [Advate] .COMPLEX oxycodone 10 mg PO Q4-6H PRN 04/27/18 04/27/18 oxycodone [OxyContin] 40 mg PO Q12H 04/27/18 04/27/18 Allergies Allergy/AdvReac Type Severity Reaction Status Date / Time aspirin Allergy Intermediate Bleeding Verified 04/27/18 20:23 codeine Allergy Intermediate Rash Verified 04/27/18 20:23 morphine Allergy Intermediate Rash Verified 04/27/18 20:23 NSAIDS (Non-Steroidal Allergy Intermediate Bleeding Verified 04/27/18 20:23 Anti-Inflamma Sulfa (Sulfonamide Allergy Unknown Rash Verified 04/27/18 20:23 Antibiotics) Review of Systems ROS: all other systems reviewed are negative (Except for that which was mentioned in the HPI) [facility] Medical History Medical History Hemophilia (Acute) Surgical History Surgical History History of left knee replacement (Acute) Family History Family History Other Family history normal Social History Social History Substance History: No History of Abuse Second Hand Smoke Exposure: No Smoking Status: Former smoker Tobacco Type: Cigarettes How Often Do You Have a Drink Containing Alcohol: Monthly or less Recent Travel in [facility] within the Last 8 Weeks: No Recent Out of Country Travel within the Last 8 Weeks: No Immunization History Tetanus Immunization: >5 Years Hx Influenza Vaccine This Season: No Exam Const General: cooperative, well developed and acute distress (Related to left elbow pain.) mild Nutritional Appearance: well nourished Orientation: alert, awake and oriented x3 HENMT Head: normocephalic and atraumatic Nose: no nasal discharge and no epistaxis Mouth: moist mucous membranes Throat: posterior oropharynx normal and uvula midline Eyes Sclera: normal sclerae Pupils: PERRL Neck Neck: no meningeal signs, trachea midline and no JVD Resp Effort & Inspection: no use of accessory muscles Auscultation: clear to auscultation bilaterally Cardio Rate: regular rate Rhythm: regular rhythm Heart Sounds: no gallops, no murmurs and no rubs GI Inspection: non-distended Palpation: soft, no hepatosplenomegaly and nontender Auscultation: normal bowel sounds Back/Spine/Pelvis Back: no CVA tenderness Skin General: dry skin (warm) Neuro General: alert, awake and oriented x3 Cranial Nerves: other Speech: speech normal Motor: no movement abnormalities noted Extrem General: normal to inspection (Except in the area of interest, the left elbow discussed further below.), no clubbing, no cyanosis and no edema Left upper extremity: edema and elbow/forearm Details: abnormal to inspection, tenderness, swelling and abnormal ROM (Decreased range of motion to full extension and flexion. Pain with supination and pronation. No pain at the wrist. The patient has 2+ radial pulse. The patient has less than 3 second capillary refill. Intact sensation over all fingertips.); ROM limited Psych Mood: congruent mood Affect: normal affect Judgment: judgment good Course Initial Documented Vital Signs Temperature 99.0 F 04/30/18 20:20 Pulse Rate 96 H 04/30/18 20:20 Respiratory Rate 16 04/30/18 20:20 Blood Pressure 151/81 H 04/30/18 20:20 Pulse Oximetry 100 04/30/18 20:20 Last Documented Vital Signs Temperature 98.0 F 05/01/18 08:00 Pulse Rate 95 H 05/01/18 08:00 Respiratory Rate 16 05/01/18 08:00 Blood Pressure 140/66 05/01/18 08:00 Pulse Oximetry 100 05/01/18 08:00 Medical Decision Making MDM Narrative Medical decision making narrative: During the course of the patient's emergency department visit, the patient's history, examination, and differential diagnosis were reviewed with the patient. The patient was placed on a cardiac/vascular sonographer with oximetry and frequent blood pressure monitoring. The patient had IV access obtained and blood work sent for analysis. A call was placed out to the patient's litigation associate for further guidance regarding management. The patient was initially provided Hydromorphone 1 mg IV for pain, normal saline IV fluids, Zofran 4 mg IV. I spoke to the patient's litigation associate, Dr. Morrison. She will order factor VIII to be infused. She agreed for the plan for the patient to be admitted to the hospitalist service and she will see the patient in consultation. The patient's results were discussed with the patient, including the plan of care. I explained that further testing and/ or monitoring is indicated based on the patient's history, examination, and/ or laboratory findings. Therefore, I recommended admission for additional evaluation. The patient expressed understanding and was agreeable with this plan. The patient was admitted to the hospital in stable condition and sent to a bed under the care of the [facility] service. The patient's case including history, pertinent physical examination findings, and laboratory studies were discussed with Dr. Morrison, Dr. Knowles. It was agreed that the patient would be admitted to the hospitalist service. Medical Screen Exam Complete: Yes Emergency Medical Condition: Yes Differential Diagnosis Differential Diagnosis: Hemarthrosis, versus septic arthritis, versus bursitis Medical Records Medical records reviewed: Yes I reviewed the patient's medical records. Lab Data Lab results reviewed: Yes I reviewed the patient's lab results. Result diagrams: 05/01/18 05:18 05/01/18 05:18 Lab Results 04/30/18 04/30/18 04/30/18 Range/Units 22:20 22:20 22:20 WBC 11.3 H (4.0-11.0) th/mm3 RBC 4.80 (4.50-5.90) mil/mm3 Hgb 13.5 (13.0-17.0) gm/dL Hct 40.7 (39.0-51.0) % MCV 84.7 (80.0-100.0) fL MCH 28.1 (27.0-34.0) pg MCHC 33.2 (32.0-36.0) % RDW 15.2 (11.6-17.2) % Plt Count 311 (150-450) th/mm3 MPV 7.3 (7.0-11.0) fL Neut % (Auto) 68.7 (16.0-70.0) % Lymph % (Auto) 22.8 (9.0-44.0) % [place] % (Auto) 6.4 (0.0-8.0) % Eos % (Auto) 1.6 (0.0-4.0) % Baso % (Auto) 0.5 (0.0-2.0) % Neut # (Auto) 7.8 H (1.8-7.7) th/mm3 Lymph # (Auto) 2.6 (1.0-4.8) th/mm3 [place] # (Auto) 0.7 (0.0-0.9) th/mm3 Eos # (Auto) 0.2 (0.0-0.4) th/mm3 Baso # (Auto) 0.1 (0.0-0.2) th/mm3 WBC Differential . Differential Comment Auto diff final Sodium 139 (136-145) meq/L Potassium 3.7 (3.5-5.1) meq/L Chloride 105 (98-107) meq/L Carbon Dioxide 26.5 (21.0-32.0) meq/L Anion Gap 8 (5-15) meq/L BUN 12 (7-18) mg/dL Creatinine 1.00 (0.60-1.30) mg/dL Estimated GFR 87 L (>89) mL/min Random Glucose 87 (74-106) mg/dL Calcium 9.1 (8.5-10.1) mg/dL Total Bilirubin 0.3 (0.2-1.0) mg/dL AST 14 L (15-37) U/L ALT 33 (12-78) U/L Alkaline Phosphatase 93 (45-117) U/L Total Protein 7.9 (6.4-8.2) g/dL Albumin 4.1 (3.4-5.0) g/dL Blood Type A Negative Blood Type Recheck Not needed Antibody Screen Negative 05/01/18 05/01/18 Range/Units 05:18 05:18 WBC 8.9 (4.0-11.0) th/mm3 RBC 4.42 L (4.50-5.90) mil/mm3 Hgb 12.5 L (13.0-17.0) gm/dL Hct 37.7 L (39.0-51.0) % MCV 85.2 (80.0-100.0) fL MCH 28.2 (27.0-34.0) pg MCHC 33.1 (32.0-36.0) % RDW 15.0 (11.6-17.2) % Plt Count 287 (150-450) th/mm3 MPV 7.3 (7.0-11.0) fL Neut % (Auto) 57.8 (16.0-70.0) % Lymph % (Auto) 29.0 (9.0-44.0) % [place] % (Auto) 9.7 H (0.0-8.0) % Eos % (Auto) 3.1 (0.0-4.0) % Baso % (Auto) 0.4 (0.0-2.0) % Neut # (Auto) 5.2 (1.8-7.7) th/mm3 Lymph # (Auto) 2.6 (1.0-4.8) th/mm3 [place] # (Auto) 0.9 (0.0-0.9) th/mm3 Eos # (Auto) 0.3 (0.0-0.4) th/mm3 Baso # (Auto) 0.0 (0.0-0.2) th/mm3 WBC Differential . Differential Comment Auto diff final Sodium 141 (136-145) meq/L Potassium 3.7 (3.5-5.1) meq/L Chloride 107 (98-107) meq/L Carbon Dioxide 25.7 (21.0-32.0) meq/L Anion Gap 8 (5-15) meq/L BUN 14 (7-18) mg/dL Creatinine 0.98 (0.60-1.30) mg/dL Estimated GFR 89 (>89) mL/min Random Glucose 82 (74-106) mg/dL Calcium 8.6 (8.5-10.1) mg/dL Total Bilirubin (0.2-1.0) mg/dL AST (15-37) U/L ALT (12-78) U/L Alkaline Phosphatase (45-117) U/L Total Protein (6.4-8.2) g/dL Albumin (3.4-5.0) g/dL Blood Type Blood Type Recheck Antibody Screen Discharge Plan Discharge Disposition Patient Disposition: 30 Still Patient Discharge Details Diagnosis: Hemarthrosis, Hemophilia Physicians Team ED Provider: Rachel Valdivia Primary Care Provider: Chase Amador Attending Provider: Rosales Arzate Other Providers: Fabiola Morrison Discharge Interventions Interventions: ED Discharge Assessment Last Done: 05/01/18 00:04 Status ED Status: Left Department Discharge Information Discharge Date/Time: 05/01/18 00:16
[2018-04-30] MEDS ORDERED: ANTIHEMOPHILIC FACTOR VIII IV.PUSH STA (22:26)
[2018-04-30] MEDS: Sod Chloride 0.9% Inj 1,000 ML IV.CONT SCH (22:29)
[2018-04-30 22:35] LABS: Baso # (Auto) 0.1 th/mm3 (0.0-0.2); Baso % (Auto) 0.5 % (0.0-2.0); Eos # (Auto) 0.2 th/mm3 (0.0-0.4); Eos % (Auto) 1.6 % (0.0-4.0); Hematocrit 40.7 % (39.0-51.0); Hemoglobin 13.5 gm/dL (13.0-17.0); Lymph # (Auto) 2.6 th/mm3 (1.0-4.8); Lymph % (Auto) 22.8 % (9.0-44.0); Mean Corpuscular HGB Conc 33.2 % (32.0-36.0); Mean Corpuscular Hemoglobin 28.1 pg (27.0-34.0); Mean Corpuscular Volume 84.7 fL (80.0-100.0); Mean Platelet Volume 7.3 fL (7.0-11.0); Mono # (Auto) 0.7 th/mm3 (0.0-0.9); Mono % (Auto) 6.4 % (0.0-8.0); Neut # (Auto) 7.8 th/mm3 (1.8-7.7); Neut % (Auto) 68.7 % (16.0-70.0); Platelet Count 311 th/mm3 (150-450); Red Cell Distribution Width 15.2 % (11.6-17.2); White Blood Count 11.3 th/mm3 (4.0-11.0)
[2018-04-30] MEDS ORDERED: ANTIHEMOPHILIC FACTOR VIII IV.PUSH ONE ×3 (22:45→23:00)
[2018-04-30 22:56] LABS: Alanine Aminotransferase 33 U/L (12-78); Albumin 4.1 g/dL (3.4-5.0); Anion Gap 8 meq/L (5-15); Aspartate Aminotransferase 14 U/L (15-37); Blood Urea Nitrogen 12 mg/dL (7-18); Calcium 9.1 mg/dL (8.5-10.1); Carbon Dioxide 26.5 meq/L (21.0-32.0); Chloride 105 meq/L (98-107); Glomerular Filtration Rate 87 mL/min (>89); Glucose,Random 87 mg/dL (74-106); Potassium 3.7 meq/L (3.5-5.1); Sodium 139 meq/L (136-145)
[2018-04-30 22:59] LABS: Alkaline Phosphatase 93 U/L (45-117); Total Protein 7.9 g/dL (6.4-8.2)
[2018-04-30] MEDS ORDERED: Acetaminophen 325 MG Tablet PO PRN (23:18)
[2018-04-30] MEDS ORDERED: Bisacodyl 10 MG Supp RECTAL PRN (23:18)
--- NOTE | 2018-04-30 23:29 | P.HP ---
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 The patient reports that he routinely has spontaneous joint bleeds. His plastics fabricator and assembler is Dr. Morrison. He reports that on Tuesday he started having pain and swelling in his left elbow. He was seen in the emergency department on where he was admitted for hemarthrosis however due to family circumstances had to leave AGAINST MEDICAL ADVICE. He reports sustained pain and swelling in his left elbow. He denies any chest pain or shortness of breath. No abdominal pain. No nausea/vomiting/diarrhea. No lateralizing signs/symptoms. No fevers/chills. Review of Systems All other systems reviewed negative except as stated in HPI PMFSH - History History Provided By: Patient - Medical History Medical History: Medical History (Last Reviewed 04/30/18 @ 22:12 by Rachel Valdivia MD) Hemophilia (Acute) - Surgical History Surgical History: Surgical History (Last Reviewed 04/30/18 @ 22:12 by Rachel Valdivia MD) History of left knee replacement (Acute) - Family History Family History: Family History (Last Updated 04/30/18 @ 23:23 by Marion Knowles MD) Other Family history normal - Tobacco History Second Hand Smoke Exposure: No Smoking Status: Never smoker - Alcohol History How Often Do You Have a Drink Containing Alcohol: Never - Travel History Recent Travel in the [place] Within the Last 8 Weeks: No Recent Travel Out of the Country Within the Last 8 Weeks: No - Immunization History Tetanus Immunization: >5 Years Hx Influenza Vaccine This Season: No Medications and Allergies Active Medications: Active Medications Sodium Chloride (Ns Inj) 1,000 mls @ 70 mls/hr IV.CONT .[id number] MEGAN Last Admin: 04/30/18 22:29 Dose: 70 mls/hr Allergies Allergy/AdvReac Type Severity Reaction Status Date / Time aspirin Allergy Intermediate Bleeding Verified 04/27/18 20:23 codeine Allergy Intermediate Rash Verified 04/27/18 20:23 morphine Allergy Intermediate Rash Verified 04/27/18 20:23 NSAIDS (Non-Steroidal Allergy Intermediate Bleeding Verified 04/27/18 20:23 Anti-Inflamma Sulfa (Sulfonamide Allergy Unknown Rash Verified 04/27/18 20:23 Antibiotics) Home Medications Medication Instructions Recorded Confirmed Type antihemophil FVIII,full length See Label Instructions .ROUTE 04/27/18 04/27/18 History [Advate] .COMPLEX oxycodone 10 mg PO Q4-6H PRN 04/27/18 04/27/18 History oxycodone [OxyContin] 40 mg PO Q12H 04/27/18 04/27/18 History Exam Vital signs: Vital Signs 04/30/18 20:20 04/30/18 21:44 04/30/18 22:30 Temperature 99.0 F Pulse Rate 96 H 84 106 H Respiratory Rate 16 18 Blood Pressure 151/81 H 127/88 Pulse Oximetry 100 95 04/30/18 23:02 Temperature Pulse Rate 98 H Respiratory Rate 18 Blood Pressure 136/83 Pulse Oximetry Intake & Output 04/30/18 04/30/18 05/01/18 06:59 18:59 06:59 Weight 79 kg Narrative: Gen.: No acute distress Head: Normocephalic. Atraumatic. EENT: Pupils equal round and reactive to light. Nose without drainage. Airway intact. Throat without injection. Cardiovascular: Regular rate and rhythm. No murmurs, rubs or gallops. Respiratory: Lungs clear to auscultation bilaterally. No wheezes or rhonchi. Abdomen: Soft, nontender, nondistended. No peritoneal signs. Musculoskeletal: Tenderness and swelling to the left elbow. Range of motion limited secondary to pain. Skin: No obvious rashes or erythema. Neuro: Sensory and motor grossly intact. Cranial nerves II through XII grossly intact. Results - Labs CBC & Chem 7: 04/30/18 22:20 04/30/18 22:20 Labs: Laboratory Results - last 24 hr 04/30/18 22:20 Sodium 139 Potassium 3.7 Chloride 105 Carbon Dioxide 26.5 Anion Gap 8 BUN 12 Creatinine 1.00 Estimated GFR 87 L Random Glucose 87 Calcium 9.1 Total Bilirubin 0.3 AST 14 L ALT 33 Alkaline Phosphatase 93 Total Protein 7.9 Albumin 4.1 Caprini VTE Risk Assessment Caprini VTE Risk Assessment: No/Low Risk (score <= 1) Caprini Risk Assessment Model: Point Value = 1 Point Value = 2 Point Value = 3 Point Value = 5 Age 41-60 Minor surgery BMI > 25 kg/m2 Swollen legs Varicose veins or History of unexplained or recurrent spontaneous Oral contraceptives or hormone replacement Sepsis (< 1 month) Serious lung disease, including pneumonia (< 1 month) Abnormal pulmonary function Acute myocardial infarction Congestive heart failure (< 1 month) History of inflammatory bowel disease Medical patient at bed rest Age 61-74 Arthroscopic surgery Major open surgery (> 45 min) Laparoscopic surgery (> 45 min) Malignancy Confined to bed (> 72 hours) Immobilizing plaster cast Central venous access Age >= 75 History of VTE Family history of VTE Factor V Leiden Prothrombin [id number] Lupus anticoagulant Anticardiolipin antibodies Elevated serum homocysteine Heparin-induced thrombocytopenia Other congenital or acquired thrombophilia Stroke (< 1 month) Elective arthroplasty Hip, pelvis, or leg fracture Acute spinal cord injury (< 1 month) Prophylaxis Regimen: Total Risk Factor Score Risk Level Prophylaxis Regimen 0-1 Low Early ambulation 2 Moderate Order ONE of the following: *Sequential Compression Device (SCD) *Heparin 5000 units SQ BID 3-4 Higher Order ONE of the following medications: *Heparin 5000 units SQ TID *Enoxaparin/Lovenox 40 mg SQ daily (WT < 150 kg, CrCl > 30 mL/min) *Enoxaparin/Lovenox 30 mg SQ daily (WT < 150 kg, CrCl > 10-29 mL/min) *Enoxaparin/Lovenox 30 mg SQ BID (WT < 150 kg, CrCl > 30 mL/min) AND/OR *Sequential Compression Device (SCD) 5 or more Highest Order ONE of the following medications: *Heparin 5000 units SQ TID (Preferred with Epidurals) *Enoxaparin/Lovenox 40 mg SQ daily (WT < 150 kg, CrCl > 30 mL/min) *Enoxaparin/Lovenox 30 mg SQ daily (WT < 150 kg, CrCl > 10-29 mL/min) *Enoxaparin/Lovenox 30 mg SQ BID (WT < 150 kg, CrCl > 30 mL/min) AND *Sequential Compression Device (SCD) Assessment and Plan - Plan Assessment/plan: 1. Hemarthrosis Patient's plastics fabricator and assembler, Dr. Morrison consulted, appreciate assistance Factor VIII administration per hematology Dilaudid for pain Monitor closely for bleeding FEN Regular diet Electrolytes: Monitor and replete as needed
[2018-05-01] MEDS: HYDROmorphone PF Inj 2 MG/ML Vial IV.PUSH PRN ×3 (02:59→12:37)
[2018-05-01 06:38] LABS: Baso % (Auto) 0.4 % (0.0-2.0); Eos # (Auto) 0.3 th/mm3 (0.0-0.4); Eos % (Auto) 3.1 % (0.0-4.0); Hematocrit 37.7 % (39.0-51.0); Hemoglobin 12.5 gm/dL (13.0-17.0); Lymph # (Auto) 2.6 th/mm3 (1.0-4.8); Mean Corpuscular HGB Conc 33.1 % (32.0-36.0); Mean Corpuscular Hemoglobin 28.2 pg (27.0-34.0); Mean Corpuscular Volume 85.2 fL (80.0-100.0); Mean Platelet Volume 7.3 fL (7.0-11.0); Mono # (Auto) 0.9 th/mm3 (0.0-0.9); Mono % (Auto) 9.7 % (0.0-8.0); Neut # (Auto) 5.2 th/mm3 (1.8-7.7); Neut % (Auto) 57.8 % (16.0-70.0); Platelet Count 287 th/mm3 (150-450); Red Blood Count 4.42 mil/mm3 (4.50-5.90); White Blood Count 8.9 th/mm3 (4.0-11.0)
[2018-05-01 06:52] LABS: Calcium 8.6 mg/dL (8.5-10.1); Carbon Dioxide 25.7 meq/L (21.0-32.0); Potassium 3.7 meq/L (3.5-5.1)
[2018-05-01] MEDS: Senna/Docusate Sodium 8.6/50 MG Tablet PO SCH ×2 (07:59→20:09)
[2018-05-01 08:21] VITALS: RESP 16
--- NOTE | 2018-05-01 10:25 | MB ---
cc: Fabiola Morrison MD,Rachel Bethea MD DATE: 05/01/2018 REFERRING PHYSICIAN: Rachel Valdivia MD CHIEF COMPLAINT: Dr. Valdivia requests a consultation for Mr. Colindres regarding severe hemophilia A. HISTORY OF PRESENT ILLNESS: Mr. Colindres is a 32-year-old man, well known patient with severe hemophilia A. He established care with [facility]. Unfortunately, his insurance changed. He was unable to come back in for followup. He was unable to refill his month's supply of Advate. He takes Advate 3000 units 3 times a week as primary prophylaxis for recurrent bleed. His target joint is his left elbow. He was seen at [facility] the week prior for the left elbow bleed. He had run out of factors. He was treated in the clinic with factors. He was being admitted for continued treatment of severe left elbow bleed when his went into labor prematurely. He signed out AMA for a family emergency. He came back with similar symptoms of the left elbow bleed worsening. He was admitted. The case was discussed with Dr. Valdivia. He was treated with his Advate 3000 units as ordered. The case was discussed with pharmacy who found a supply of Advate. His course is complicated by chronic pain. He is under the care of Dr. Aldana . We discussed that pain pumps would be contraindicated in severe hemophilia A. He bleeds spontaneously. At this point, he also has trouble obtaining his factors. His pain is under control on current p.r.n. medication. He denies any nausea or vomiting. His left elbow is feeling better in the morning. He denies any chest pain or shortness of breath. He denies any other bleeding. His port in the right groin appears to be functioning well. PAST MEDICAL HISTORY: 1. Severe hemophilia A. 2. Chronic pain. 3. Multiple hemophilic arthropathy. PAST SURGICAL HISTORY: 1. Left knee surgery/left knee replacement. 2. Left elbow surgery. 3. Infusaport placement. 4. Nephrolithiasis and stone extraction. ALLERGIES: MORPHINE. FAMILY HISTORY: Mother is a carrier. He has a brother with severe hemophilia A. His 3 sons are unaffected. SOCIAL HISTORY: He is , lives with his and 3 sons. His youngest son was recently born at 7 months. He has been stabilized and been discharged home. He smokes 2 cigarettes per day. He drinks rarely. He denies any illicit drug use. PHYSICAL EXAMINATION: VITAL SIGNS: Temperature 98.0, heart rate 95, respiratory rate 16, blood pressure 140/66, saturation 99%. GENERAL: Mr. Colindres is a well-developed, well-nourished man, in no acute distress. HEENT: His pupils are round, reactive to light and accommodation. Oropharynx is clear. NECK: Supple. LUNGS: Clear. CARDIOVASCULAR: Reveals a mild tachycardia. ABDOMEN: Benign. EXTREMITIES: Lower extremities with no edema. He has got a hemophiliac arthropathy and a frozen left elbow joint. LABORATORY DATA: Labs significant for mild anemia with hemoglobin of 12.5. Chemistry is normal. ASSESSMENT AND PLAN: Mr. Colindres is a 32-year-old man with severe hemophilia A. He was on primary prophylaxis with Advate 3000 units 3 times a week until his insurance ran out. He ran out of factors. He bled spontaneously and he did not have any factors in order to curtail the bleeding. He is admitted for severe left elbow bleed. He has been dosed his usual dose of 3000 units, which corrects him to about 75%. Next dose of factor will be coordinated 12 hours later to keep him around 50% for the severe left elbow bleed. A subsequent dose should be 24 hours later. We can see how he feels in 24 hours and anticipate that he should be discharged home tomorrow. His pain is under control. His questions were answered to his satisfaction. MD VANI Wyman/pineda , 09:47 AM , 09:56 AM ELIJAH
[2018-05-01] MEDS ORDERED: ADVATE IV.PUSH ONE (11:30)
[2018-05-01] MEDS ORDERED: [UNRECOGNIZED DRUG - OTHER] IV.PUSH ONE (11:30)
--- NOTE | 2018-05-01 13:20 | P.PNIM ---
Subjective Interval history: L elbow pain, allegedly not controlled by Dilaudid 1 mg IV, requesting to increase it to 2 mg IV. He is to say that he is on 4 mg p.o. Afebrile. Status post Advate. Physical Exam Vital signs: Vital Signs 04/30/18 20:20 04/30/18 21:44 04/30/18 22:30 Temperature 99.0 F Pulse Rate 96 H 84 106 H Respiratory Rate 16 18 Blood Pressure 151/81 H 127/88 Pulse Oximetry 100 95 04/30/18 23:02 04/30/18 23:59 05/01/18 00:00 Temperature 98.9 F Pulse Rate 98 H 91 H 91 H Respiratory Rate 18 18 18 Blood Pressure 136/83 137/83 142/76 H Pulse Oximetry 98 100 05/01/18 04:00 05/01/18 08:00 Temperature 98.4 F 98.0 F Pulse Rate 89 95 H Respiratory Rate 15 16 Blood Pressure 123/61 140/66 Pulse Oximetry 99 100 Intake & Output 04/30/18 05/01/18 05/01/18 18:59 06:59 18:59 Weight 72.575 kg Other: # Voids 0 Date of Last Bowel Movement 04/30/18 04/30/18 Narrative: General: No acute distress Head: Normocephalic. Atraumatic. Respiratory: Lungs clear to auscultation bilaterally. No wheezes or rhonchi. Abdomen: Soft, nontender, nondistended. No peritoneal signs. Musculoskeletal: Tenderness and swelling to the left elbow. Range of motion limited secondary to pain. Skin: No obvious rashes or erythema. Neuro: AAOx3. Sensory and motor grossly intact. Cranial nerves II through XII grossly intact. Results - Labs CBC & Chem 7: 05/01/18 05:18 05/01/18 05:18 Laboratory Results - last 24 hr 04/30/18 04/30/18 04/30/18 22:20 22:20 22:20 WBC 11.3 H RBC 4.80 Hgb 13.5 Hct 40.7 MCV 84.7 MCH 28.1 MCHC 33.2 RDW 15.2 Plt Count 311 MPV 7.3 Neut % (Auto) 68.7 Lymph % (Auto) 22.8 [place] % (Auto) 6.4 Eos % (Auto) 1.6 Baso % (Auto) 0.5 Neut # (Auto) 7.8 H Lymph # (Auto) 2.6 [place] # (Auto) 0.7 Eos # (Auto) 0.2 Baso # (Auto) 0.1 WBC Differential . Differential Comment Auto diff final Sodium 139 Potassium 3.7 Chloride 105 Carbon Dioxide 26.5 Anion Gap 8 BUN 12 Creatinine 1.00 Estimated GFR 87 L Random Glucose 87 Calcium 9.1 Total Bilirubin 0.3 AST 14 L ALT 33 Alkaline Phosphatase 93 Total Protein 7.9 Albumin 4.1 Blood Type A Negative Blood Type Recheck Not needed Antibody Screen Negative 05/01/18 05/01/18 05:18 05:18 WBC 8.9 RBC 4.42 L Hgb 12.5 L Hct 37.7 L MCV 85.2 MCH 28.2 MCHC 33.1 RDW 15.0 Plt Count 287 MPV 7.3 Neut % (Auto) 57.8 Lymph % (Auto) 29.0 [place] % (Auto) 9.7 H Eos % (Auto) 3.1 Baso % (Auto) 0.4 Neut # (Auto) 5.2 Lymph # (Auto) 2.6 [place] # (Auto) 0.9 Eos # (Auto) 0.3 Baso # (Auto) 0.0 WBC Differential . Differential Comment Auto diff final Sodium 141 Potassium 3.7 Chloride 107 Carbon Dioxide 25.7 Anion Gap 8 BUN 14 Creatinine 0.98 Estimated GFR 89 Random Glucose 82 Calcium 8.6 Total Bilirubin AST ALT Alkaline Phosphatase Total Protein Albumin Blood Type Blood Type Recheck Antibody Screen Assessment and Plan - Plan This is a 32-year-old male with history of severe hemophilia A who ran out of factors and presented with left elbow bleed Hemarthrosis secondary to severe hemophilia A -Patient's project engineering director, Dr. Morrison consulted, appreciate assistance Factor VIII administration per hematology: Advate dosing per hematology. Dilaudid for pain, stop Dilaudid IV, continue oxycodone per home dose. Oral Dilaudid 4 mg for breakthrough pain, per patient, he has been on 4 mg Dilaudid before. Monitor closely for bleeding FEN Regular diet
[2018-05-01] MEDS: Sod Chloride 0.9% Inj 1,000 ML IV.CONT SCH (13:58)
[2018-05-01] MEDS ORDERED: HYDROmorphone PF Inj 2 MG/ML Vial IV.PUSH ONE (22:43)
[2018-05-02] MEDS ORDERED: HYDROmorphone PF Inj 2 MG/ML Vial IV.PUSH PRN (03:15)
[2018-05-02] MEDS: Sod Chloride 0.9% Inj 1,000 ML IV.CONT SCH (03:33)
[2018-05-02] MEDS ORDERED: [UNRECOGNIZED DRUG - OTHER] IV.PUSH ONE (07:00)
[2018-05-02] MEDS ORDERED: ADVATE IV.PUSH ONE (07:00)
[2018-05-02] MEDS: Senna/Docusate Sodium 8.6/50 MG Tablet PO SCH ×2 (08:01→08:03)
[2018-05-02 08:15] VITALS: BP 137/79; PULSE 96; TEMP 97.9; O2SAT 98
--- NOTE | 2018-05-02 12:47 | P.DS ---
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 The patient reports that he routinely has spontaneous joint bleeds. His fashion consultant is Dr. Morrison. He reports that on Tuesday he started having pain and swelling in his left elbow. He was seen in the emergency department on where he was admitted for hemarthrosis however due to family circumstances had to leave AGAINST MEDICAL ADVICE. He reports sustained pain and swelling in his left elbow. He denies any chest pain or shortness of breath. No abdominal pain. No nausea/vomiting/diarrhea. No lateralizing signs/symptoms. No fevers/chills. DS: Diagnosis - Discharge Diagnosis (1) Hemarthrosis Status: Acute (2) Hemophilia Status: Acute DS: Summary Hospital Course: This is a 32-year-old male with history of severe hemophilia A who ran out of factors and presented with left elbow bleed. Patient ran out of his factor VIII. Hematology was consulted, factor VIII, Advate was started. Pain control was done with intravenous and oral Dilaudid. After patient received 3 doses of Advate, patient was discharged to follow-up with oncology clinic to procure more Advate. - Time Spent with Patient Total time spent providing and/or coordinating discharge services: Greater than 30 minutes - Quality: VTE Deep Vein Thrombosis/Pulmonary Embolism Present on Admission: No Exam Vital signs: Vital Signs 05/01/18 16:00 05/01/18 20:00 05/02/18 00:00 Temperature 98.1 F 98.2 F Pulse Rate 95 H 98 H 90 Respiratory Rate 16 16 Blood Pressure 129/68 155/91 H 134/58 L Pulse Oximetry 98 100 99 05/02/18 08:00 Temperature 97.9 F Pulse Rate 96 H Respiratory Rate 16 Blood Pressure 137/79 Pulse Oximetry 98 Intake & Output 05/01/18 05/02/18 05/02/18 18:59 06:59 18:59 Intake Total 1000 / 1000 1000 / 1000 Balance 1000 / 1000 1000 / 1000 Intake: IV 1000 / 1000 1000 / 1000 NS Inj 1,000 ML @ 70 mls/hr IV. 1000 / 1000 1000 / 1000 CONT .[id number] [facility] Rx#:[id number] Other: Date of Last Bowel Movement 04/30/18 04/30/18 Narrative: S> No overnight events, left shoulder pain was manageable. Received Advate this morning. Cleared by hematology. O> General: No acute distress Head: Normocephalic. Atraumatic. Respiratory: Lungs clear to auscultation bilaterally. No wheezes or rhonchi. Abdomen: Soft, nontender, nondistended. No peritoneal signs. Musculoskeletal: Tenderness and swelling to the left elbow. Range of motion limited secondary to pain. Skin: No obvious rashes or erythema. Neuro: AAOx3. Sensory and motor grossly intact. Cranial nerves II through XII grossly intact. Results Procedures completed during hospitalization: none Discharge Plan - Discharge Disposition Patient Disposition: Discharge Home - Discharge Condition Condition: Good - Discharge Order Discharge Orders: Discharge Order (Routine); Ordered 05/02/18 Ordered By: Rosales Arzate - Discharge Details Anticipated Discharge Date: 05/02/18 - Physicians Team Primary Care Provider: Chase Amador Attending Provider: Rosales Arzate Other Providers: Fabiola Morrison MD
== END 2018-05-02 13:17 | disposition home or self-care (01) ==
LOC: NEDA 19:47 → NEPE 19:47 → NEDA 05-01 00:16 → NEPHCDU 05-01 00:18
PROVIDERS: ADMIT Hospitalist; ATTEND Hospitalist

== ENCOUNTER 2018-07-02 08:20 | Observation (INO) ==
--- NOTE | 2018-07-02 08:48 | ED ---
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 all: morphine/codeine/sulfa all cause rash and avoids asa/nsaids/due to bleeding MD Complaint: Reports extremity pain and extremity swelling Pain Consistency: constant Location: Reports left and upper extremity Severity scale (1-10): 8 Quality: Reports sharp Radiation: Reports none Relieving factors: nothing and other (receiving factor 8 replacement) Exacerbating factors: nothing Related Data Home Medications Medication Instructions Recorded Confirmed antihemophil FVIII,full length See Label Instructions .ROUTE 04/27/18 07/02/18 [Advate] .COMPLEX oxycodone 30 mg PO Q4-6H PRN 04/27/18 07/02/18 Allergies Allergy/AdvReac Type Severity Reaction Status Date / Time aspirin Allergy Intermediate Bleeding Verified 07/02/18 08:43 codeine Allergy Intermediate Rash Verified 07/02/18 08:43 morphine Allergy Intermediate Rash Verified 07/02/18 08:43 NSAIDS (Non-Steroidal Allergy Intermediate Bleeding Verified 07/02/18 08:43 Anti-Inflamma Sulfa (Sulfonamide Allergy Unknown Rash Verified 07/02/18 08:43 Antibiotics) Review of Systems ROS: all other systems reviewed are negative [facility] Medical History Medical History Hemophilia (Acute) Surgical History Surgical History History of left knee replacement (Acute) Family History Family History Other Family history normal Social History Social History Substance History: No History of Abuse Second Hand Smoke Exposure: No Smoking Status: Former smoker Tobacco Type: Cigarettes How Often Do You Have a Drink Containing Alcohol: Never Recent Travel in [place] within the Last 8 Weeks: No Recent Out of Country Travel within the Last 8 Weeks: No Immunization History Tetanus Immunization: <5 Years Exam Narrative Exam Narrative: GENERAL: Well-nourished, well-developed patient in no apparent distress. SKIN: Warm and dry. HEAD: Atraumatic. Normocephalic. EYES: Pupils equal and round. No scleral icterus. No injection or drainage. ENT: No nasal bleeding or discharge. Mucous membranes pink and moist. NECK: Trachea midline. No JVD. CARDIOVASCULAR: Regular rate and rhythm. no rubs or gallops RESPIRATORY: No accessory muscle use. Clear to auscultation. Breath sounds equal bilaterally. GASTROINTESTINAL: Abdomen soft, non-tender, nondistended. No rebound or guarding MUSCULOSKELETAL: Extremities without clubbing, cyanosis, or edema. No obvious deformities. left elbow swelling c/w arthropathy NEUROLOGICAL: Awake and alert. No obvious cranial nerve deficits. Motor grossly within normal limits. Five out of 5 muscle strength in the arms and legs. Normal speech. PSYCHIATRIC: Appropriate mood and affect; insight and judgment normal. Course Initial Documented Vital Signs Temperature 98.5 F 07/02/18 08:24 Pulse Rate 93 H 07/02/18 08:24 Respiratory Rate 16 07/02/18 08:24 Blood Pressure 170/89 H 07/02/18 08:24 Pulse Oximetry 100 07/02/18 08:24 Last Documented Vital Signs Temperature 98.1 F 07/02/18 12:02 Pulse Rate 85 07/02/18 12:02 Respiratory Rate 16 07/02/18 15:15 Blood Pressure 145/80 H 07/02/18 12:02 Pulse Oximetry 96 07/02/18 12:02 Medical Decision Making [facility] Narrative Medical Screen Exam Complete: Yes Emergency Medical Condition: Yes Lab Data Lab results reviewed: Yes I reviewed the patient's lab results. Result diagrams: 07/02/18 09:20 07/02/18 09:20 Lab Results 07/02/18 07/02/18 07/02/18 Range/Units 09:20 09:20 09:20 WBC 8.5 (4.0-11.0) th/mm3 RBC 4.46 L (4.50-5.90) mil/mm3 Hgb 12.8 L (13.0-17.0) gm/dL Hct 38.9 L (39.0-51.0) % MCV 87.2 (80.0-100.0) fL MCH 28.7 (27.0-34.0) pg MCHC 32.9 (32.0-36.0) % RDW 15.7 (11.6-17.2) % Plt Count 347 (150-450) th/mm3 MPV 7.0 (7.0-11.0) fL Neut % (Auto) 75.2 H (16.0-70.0) % Lymph % (Auto) 18.3 (9.0-44.0) % [place] % (Auto) 4.9 (0.0-8.0) % Eos % (Auto) 1.2 (0.0-4.0) % Baso % (Auto) 0.4 (0.0-2.0) % Neut # (Auto) 6.4 (1.8-7.7) th/mm3 Lymph # (Auto) 1.6 (1.0-4.8) th/mm3 [place] # (Auto) 0.4 (0.0-0.9) th/mm3 Eos # (Auto) 0.1 (0.0-0.4) th/mm3 Baso # (Auto) 0.0 (0.0-0.2) th/mm3 WBC Differential . Differential Comment Auto diff final PT 10.7 (9.8-11.6) sec INR 1.1 Ratio APTT 44.3 H (23.4-31.7) sec Sodium 140 (136-145) meq/L Potassium 4.0 (3.5-5.1) meq/L Chloride 105 (98-107) meq/L Carbon Dioxide 27.9 (21.0-32.0) meq/L Anion Gap 7 (5-15) meq/L BUN 16 (7-18) mg/dL Creatinine 0.92 (0.60-1.30) mg/dL Estimated GFR Greater than 89 (>89) mL/min Random Glucose 101 (74-106) mg/dL Calcium 8.7 (8.5-10.1) mg/dL Total Bilirubin 0.3 (0.2-1.0) mg/dL AST 15 (15-37) U/L ALT 25 (12-78) U/L Alkaline Phosphatase 81 (45-117) U/L Total Protein 7.2 (6.4-8.2) g/dL Albumin 3.9 (3.4-5.0) g/dL Imaging Data Attestation: I personally reviewed and interpreted this imaging study as follows : Radiologist's impression: Elbow X-Ray 07/02/18 09:03 CONCLUSION: Persistent but stable severe arthropathy as described. No evidence of acute fracture or dislocation. Suspected joint effusion. Discharge Plan Discharge Disposition Patient Disposition: 30 Still Patient Discharge Condition Condition: Good Discharge Order Discharge Orders: Discharge Order (Routine); Ordered 07/02/18 Ordered By: Marcos Whiteside Discharge Details Anticipated Discharge Date: 07/02/18 Discharge Comment: discharge home today, he has a dosage at home for Factor VIII for tomorrow and follow with Doctor Fabiola Morrison in her Office day after tomorrow. Diagnosis: Hemarthrosis, Hemophilia Physicians Team ED Provider: Dain Long Primary Care Provider: Primary Care Susan Lara Attending Provider: Marcos Whiteside Other Providers: Fabiola Morrison Discharge Interventions Interventions: ED Discharge Assessment Last Done: 07/02/18 12:06 Status ED Status: Left Department Discharge Information Discharge Date/Time: 07/02/18 11:45
[2018-07-02] MEDS ORDERED: ANTIHEMOPHILIC FACTOR VIII IV.PUSH ONE ×6 (08:56→22:00)
--- NOTE | 2018-07-02 09:30 | XR ---
EXAM DATE: 07/02/2018 9:17 AM EST AGE/SEX: 33 years / Male INDICATIONS: Pain and swelling left elbow, denies injury CLINICAL DATA: This is the patient's initial encounter. Patient reports that signs and symptoms have been present for 2 days and indicates a pain score of 9/10. MEDICAL/SURGICAL HISTORY: . Hemarthrosis None. COMPARISON: [facility] [place] COMPLETE (4 VWS), 01/02/2018. . FINDINGS: Persistent severe arthropathic deformity of the left elbow with significant remodeling of the articul ating surfaces, joint space narrowing and marginal spurring. Displaced anterior and posterior fat pads indicative of joint effusion. No evidence of acute fracture or dislocation. CONCLUSION: Persistent but stable severe arthropathy as described. No evidence of acute fracture or dislocation. Suspected joint effusion. Electronically signed by: Dillon Brown MD 07/02/2018 9:29 AM EST
[2018-07-02 09:34] LABS: Baso % (Auto) 0.4 % (0.0-2.0); Eos # (Auto) 0.1 th/mm3 (0.0-0.4); Eos % (Auto) 1.2 % (0.0-4.0); Hematocrit 38.9 % (39.0-51.0); Hemoglobin 12.8 gm/dL (13.0-17.0); Lymph # (Auto) 1.6 th/mm3 (1.0-4.8); Lymph % (Auto) 18.3 % (9.0-44.0); Mean Corpuscular HGB Conc 32.9 % (32.0-36.0); Mean Corpuscular Hemoglobin 28.7 pg (27.0-34.0); Mean Corpuscular Volume 87.2 fL (80.0-100.0); Mono # (Auto) 0.4 th/mm3 (0.0-0.9); Mono % (Auto) 4.9 % (0.0-8.0); Neut # (Auto) 6.4 th/mm3 (1.8-7.7); Neut % (Auto) 75.2 % (16.0-70.0); Platelet Count 347 th/mm3 (150-450); Red Blood Count 4.46 mil/mm3 (4.50-5.90); Red Cell Distribution Width 15.7 % (11.6-17.2); White Blood Count 8.5 th/mm3 (4.0-11.0)
[2018-07-02 09:46] LABS: Activated Partial Thrombo Time 44.3 sec (23.4-31.7); INR 1.1 Ratio; Prothrombin Time 10.7 sec (9.8-11.6)
[2018-07-02] MEDS ORDERED: HYDROmorphone PF Inj 0.5 MG/0.5 ML Syringe IV.PUSH ONE (09:47)
[2018-07-02] MEDS ORDERED: HYDROmorphone PF Inj 1 MG/ML Ampul IV.PUSH ONE (10:00)
[2018-07-02] MEDS ORDERED: Sodium Chloride 0.9% 2 ML Flush PRN IV.FLUSH (10:00)
[2018-07-02 10:04] LABS: Alanine Aminotransferase 25 U/L (12-78); Albumin 3.9 g/dL (3.4-5.0); Anion Gap 7 meq/L (5-15); Aspartate Aminotransferase 15 U/L (15-37); Blood Urea Nitrogen 16 mg/dL (7-18); Calcium 8.7 mg/dL (8.5-10.1); Carbon Dioxide 27.9 meq/L (21.0-32.0); Chloride 105 meq/L (98-107); Glomerular Filtration Rate Greater Than 89 mL/min (>89); Glucose,Random 101 mg/dL (74-106); Sodium 140 meq/L (136-145)
[2018-07-02 10:07] LABS: Alkaline Phosphatase 81 U/L (45-117); Total Protein 7.2 g/dL (6.4-8.2)
[2018-07-02] MEDS ORDERED: Bisacodyl 10 MG Supp RECTAL PRN (10:17)
[2018-07-02] MEDS ORDERED: Acetaminophen 325 MG Tablet PO PRN (10:17)
--- NOTE | 2018-07-02 10:31 | P.HP ---
History of Present Illness Primary Care Physician: No Primary Care Physician Chief Complaint: Extremity Problem,Nontraumatic History of Present Illness: This is a pleasant 33 y/o Male who suffers from Hemarthroses, due to Hemophilia A, He is been followed by instructional support specialist Doctor Prince, he has multiple Arthropathies due to severe Hemophilia A. came to ER with Extremity pain and swelling, on left and Upper extremities, with pain as sharp pain 8/10 in intensity receiving factor 8 replacement he received 3064 units, he received Nuwiq that has a half life 12 to 17 hours, will follow recommendations by instructional support specialist Doctor Morrison will give half of the dose in 12 hours after this first dose unless changed by His Primary instructional support specialist. Review of Systems All other systems reviewed negative except as stated in HPI PMFSH - History History Provided By: Patient - Medical History Medical History: Medical History (Last Reviewed 07/02/18 @ 08:51 by Dain Long) Hemophilia (Acute) - Surgical History Surgical History: Surgical History (Last Reviewed 07/02/18 @ 08:51 by Dain Long) History of left knee replacement (Acute) - Family History Family History: Family History (Last Reviewed 07/02/18 @ 08:51 by Dain Long) Other Family history normal - Tobacco History Second Hand Smoke Exposure: No Smoking Status: Former smoker Tobacco Type: Cigarettes - Alcohol History How Often Do You Have a Drink Containing Alcohol: Never - Substance Use History Substance History: No History of Abuse - Travel History Recent Travel in the [place] Within the Last 8 Weeks: No Recent Travel Out of the Country Within the Last 8 Weeks: No - Immunization History Tetanus Immunization: <5 Years Medications and Allergies Active Medications: Active Medications Sodium Chloride (Ns Flush) 2 ml IV.FLUSH BID MEGAN Sodium Chloride (Ns Flush) 2 ml IV.FLUSH PRN PRN PRN Reason: FLUSH AFTER USING IV ACCESS Allergies Allergy/AdvReac Type Severity Reaction Status Date / Time aspirin Allergy Intermediate Bleeding Verified 07/02/18 08:43 codeine Allergy Intermediate Rash Verified 07/02/18 08:43 morphine Allergy Intermediate Rash Verified 07/02/18 08:43 NSAIDS (Non-Steroidal Allergy Intermediate Bleeding Verified 07/02/18 08:43 Anti-Inflamma Sulfa (Sulfonamide Allergy Unknown Rash Verified 07/02/18 08:43 Antibiotics) Home Medications Medication Instructions Recorded Confirmed Type antihemophil FVIII,full length See Label Instructions .ROUTE 04/27/18 07/02/18 History [Advate] .COMPLEX oxycodone 15 mg PO Q4-6H PRN 04/27/18 07/02/18 History Exam Vital signs: Vital Signs 07/02/18 08:24 07/02/18 09:28 07/02/18 09:57 Temperature 98.5 F Pulse Rate 93 H 91 H 92 H Respiratory Rate 16 19 Blood Pressure 170/89 H 159/83 H Pulse Oximetry 100 100 99 Intake & Output 07/01/18 07/02/18 07/02/18 19:59 06:59 18:59 Intake Total 5 / 5 Balance 5 Weight 77.111 kg Intake: IV 5 / 5 Nuwiq Inj 3,064 UNIT In Bag/ 5 Syringe 5 EACH @ 60 mls/hr IV. PUSH ONCE ONE Rx#:[id number] Narrative: GENERAL: Well-nourished, well-developed patient in no apparent distress. SKIN: Warm and dry. HEAD: Atraumatic. Normocephalic. EYES: Pupils equal and round. No scleral icterus. No injection or drainage. ENT: No nasal bleeding or discharge. Mucous membranes pink and moist. NECK: Trachea midline. No JVD. CARDIOVASCULAR: Regular rate and rhythm. no rubs or gallops RESPIRATORY: No accessory muscle use. Clear to auscultation. Breath sounds equal bilaterally. GASTROINTESTINAL: Abdomen soft, non-tender, nondistended. No rebound or guarding MUSCULOSKELETAL: Extremities without clubbing, cyanosis, or edema. No obvious deformities. left elbow swelling c/w arthropathy NEUROLOGICAL: Awake and alert. No obvious cranial nerve deficits. Motor grossly within normal limits. Five out of 5 muscle strength in the arms and legs. Normal speech. PSYCHIATRIC: Appropriate mood and affect; insight and judgment normal. Results - Labs CBC & Chem 7: 07/02/18 09:20 07/02/18 09:20 Labs: Laboratory Results - last 24 hr 07/02/18 07/02/18 07/02/18 09:20 09:20 09:20 WBC 8.5 RBC 4.46 L Hgb 12.8 L Hct 38.9 L MCV 87.2 MCH 28.7 MCHC 32.9 RDW 15.7 Plt Count 347 MPV 7.0 Neut % (Auto) 75.2 H Lymph % (Auto) 18.3 [place] % (Auto) 4.9 Eos % (Auto) 1.2 Baso % (Auto) 0.4 Neut # (Auto) 6.4 Lymph # (Auto) 1.6 [place] # (Auto) 0.4 Eos # (Auto) 0.1 Baso # (Auto) 0.0 WBC Differential . Differential Comment Auto diff final PT 10.7 INR 1.1 APTT 44.3 H Sodium 140 Potassium 4.0 Chloride 105 Carbon Dioxide 27.9 Anion Gap 7 BUN 16 Creatinine 0.92 Estimated GFR Greater than 89 Random Glucose 101 Calcium 8.7 Total Bilirubin 0.3 AST 15 ALT 25 Alkaline Phosphatase 81 Total Protein 7.2 Albumin 3.9 - Imaging Impressions Elbow X-Ray 07/02/18 09:03 CONCLUSION: Persistent but stable severe arthropathy as described. No evidence of acute fracture or dislocation. Suspected joint effusion. Caprini VTE Risk Assessment Caprini VTE Risk Assessment: No/Low Risk (score <= 1) Caprini Risk Assessment Model: Point Value = 1 Point Value = 2 Point Value = 3 Point Value = 5 Age 41-60 Minor surgery BMI > 25 kg/m2 Swollen legs Varicose veins or History of unexplained or recurrent spontaneous Oral contraceptives or hormone replacement Sepsis (< 1 month) Serious lung disease, including pneumonia (< 1 month) Abnormal pulmonary function Acute myocardial infarction Congestive heart failure (< 1 month) History of inflammatory bowel disease Medical patient at bed rest Age 61-74 Arthroscopic surgery Major open surgery (> 45 min) Laparoscopic surgery (> 45 min) Malignancy Confined to bed (> 72 hours) Immobilizing plaster cast Central venous access Age >= 75 History of VTE Family history of VTE Factor V Leiden Prothrombin [id number] Lupus anticoagulant Anticardiolipin antibodies Elevated serum homocysteine Heparin-induced thrombocytopenia Other congenital or acquired thrombophilia Stroke (< 1 month) Elective arthroplasty Hip, pelvis, or leg fracture Acute spinal cord injury (< 1 month) Prophylaxis Regimen: Total Risk Factor Score Risk Level Prophylaxis Regimen 0-1 Low Early ambulation 2 Moderate Order ONE of the following: *Sequential Compression Device (SCD) *Heparin 5000 units SQ BID 3-4 Higher Order ONE of the following medications: *Heparin 5000 units SQ TID *Enoxaparin/Lovenox 40 mg SQ daily (WT < 150 kg, CrCl > 30 mL/min) *Enoxaparin/Lovenox 30 mg SQ daily (WT < 150 kg, CrCl > 10-29 mL/min) *Enoxaparin/Lovenox 30 mg SQ BID (WT < 150 kg, CrCl > 30 mL/min) AND/OR *Sequential Compression Device (SCD) 5 or more Highest Order ONE of the following medications: *Heparin 5000 units SQ TID (Preferred with Epidurals) *Enoxaparin/Lovenox 40 mg SQ daily (WT < 150 kg, CrCl > 30 mL/min) *Enoxaparin/Lovenox 30 mg SQ daily (WT < 150 kg, CrCl > 10-29 mL/min) *Enoxaparin/Lovenox 30 mg SQ BID (WT < 150 kg, CrCl > 30 mL/min) AND *Sequential Compression Device (SCD) Assessment and Plan - Plan 1. 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 given Factor VIII replacement 3064 units this product has Half life of 12 [address] second dose in 12 hours at half of the dose until seen by instructional support specialist, consulted his Primary specialist Doctor Prince. complaint of pain 2. Medical Non compliance 3. Chronic pain syndrome and Narcotic dependence giving his home medicine Oxycodone and added Dilaudid IV 0.5 mg every four hours for breakthrough pain. DVT prophylaxis not needed he has already Hemophilia A and with Hemarthrosis at this time. encourage ambulation. Code Status: Full Code. Discussed Condition With: Patient, Nurse and ER physician Doctor Dain Long Discharge Planning: Once cleared by instructional support specialist.
[2018-07-02] MEDS ORDERED: HYDROmorphone PF Inj 1 MG/ML Ampul IV.PUSH PRN (11:45)
[2018-07-02 16:17] VITALS: BP 102/58; PULSE 83; RESP 22; TEMP 98.2; O2SAT 99
--- NOTE | 2018-07-02 16:39 | MB ---
cc: Fabiola Morrison MD,Marcos FRANK DATE: 07/02/2018 REFERRING PHYSICIAN: Marcos Whiteside MD CHIEF COMPLAINT: Dr. Whiteside requests a consultation for Mr. Colindres regarding severe hemophilia A. HISTORY OF PRESENT ILLNESS: Mr. Colindres is a 33-year-old man, well known patient, with a history of severe hemophilia A. He was lost to followup as he lost his insurance and was unable to come back to clinic. He is at a new job and is able to obtain insurance again. However, he developed acute bleed in his left elbow, which prompted him to come into the emergency room. He was promptly treated by Dr. Long as soon as he came in with his left elbow bleed. There was no delay in administration of the Advate. He received a 3000 unit dose, which promptly alleviated his symptoms. He denies any intercurrent illness or problem. He has been managing as best he can with the limitation on supply of his antihemophilia factor. He has been treating himself on demand. He anticipates resuming his followup care in [facility] once his insurance is in place. PAST MEDICAL HISTORY: Severe hemophilia A, chronic pain, hemophiliac arthropathy, left elbow target joint. PAST SURGICAL HISTORY: Left knee replacement, left elbow surgery, Infusaport placement, nephrolithiasis. ALLERGIES: MORPHINE. FAMILY HISTORY: Significant for a mother who is a carrier. He has a brother with severe hemophilia A. He has 3 sons that are unaffected. SOCIAL HISTORY: He is , lives with his and 3 sons. He smokes several cigarettes a day. He drinks rarely. Denies any illicit drug use. PHYSICAL EXAMINATION: VITAL SIGNS: Temperature 98.1, heart rate 85, respiratory rate 20, blood pressure 145/80, saturation 96%. GENERAL: Mr. Colindres is a well-developed, well-nourished, pleasant man with some moderate distress and left elbow stiffness. HEENT: His pupils are round, reactive to light and accommodation. Oropharynx is clear. NECK: Supple. LUNGS: Clear. CARDIOVASCULAR: Reveals a normal rate and rhythm. ABDOMEN: Benign. EXTREMITIES: Lower extremities, no edema. He has got hemophiliac arthropathy. Limited range of motion of the left elbow. ASSESSMENT AND PLAN: Mr. Colindres is a 33-year-old man with severe hemophilia A. He has spontaneous joint bleeds. His left elbow is his target joint. Ultimately he hopes to have a surgery for his left elbow coordinated with orthopedic surgery and hematology group that can manage hemophilia acutely. He is doing well and in light of his acute left elbow bleed he was treated promptly when he came in. This minimized the bleeding and thus improved his response. We discussed administering a second dose approximately 8-10 hours after his first dose. He is eager to go home and back to his children. He has work tomorrow and would like to maintain his employment as his insurance in the future depends on that. He has a single dose of Factor at home for use on a p.r.n. basis. He is advised to followup with a peer financial counselor. We will coordinate a request for samples of Factor if possible through our oncology resource nurse. The case was discussed with Dr. Whiteside. He was in agreement to allow the patient to be discharged after his next and last dose of Factor . The patient is advised to return sooner if problems arise. We hope to see him in followup in July. Supportive treatment including pain medication, ice and elevation for the left elbow is given. MD VANI Wyman/rosenda/sola , 12:51 PM , 01:01 PM
--- NOTE | 2018-07-02 17:41 | P.DS ---
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 came to ER with Extremity pain and swelling, on left and Upper extremities, with pain as sharp pain 8/10 in intensity receiving factor 8 replacement he received 3064 units, he received Nuwiq that has a half life 12 to 17 hours, will follow recommendations by logistic specialist Doctor Morrison will give half of the dose in 12 hours after this first dose unless changed by His Primary logistic specialist. DS: Diagnosis - Discharge Diagnosis (1) Hemarthrosis Status: Acute (2) Hemophilia Status: Acute DS: Summary Hospital Course: Assessment and Plan - Plan 1. 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 given Factor VIII replacement 3064 units this product has Half life of [address] second dose in 12 hours at half of the dose until seen by logistic specialist, consulted his Primary specialist Doctor Prince. complaint of pain 2. Medical Non compliance 3. Chronic pain syndrome and Narcotic dependence giving his home medicine Oxycodone and added Dilaudid IV 0.5 mg every four hours for breakthrough pain. DVT prophylaxis not needed he has already Hemophilia A and with Hemarthrosis at this time. encourage ambulation. Code Status: Full Code. Discussed Condition With: Patient, Nurse and ER physician Doctor Dain Long Discharge Planning: Case discussed with logistic specialist doctor Fabiola Morrison recommended for discharge after the dose of Factor VIII this afternoon at 1800 Hours. he does not need Pain medicine E forcse revised and he receive too many scripts for Pain medicine already. - Time Spent with Patient Total time spent providing and/or coordinating discharge services: Less than 30 minutes - Quality: VTE Deep Vein Thrombosis/Pulmonary Embolism Present on Admission: No Exam Vital signs: Vital Signs 07/02/18 08:24 07/02/18 09:28 07/02/18 09:57 Temperature 98.5 F Pulse Rate 93 H 91 H 92 H Respiratory Rate 16 19 Blood Pressure 170/89 H 159/83 H Pulse Oximetry 100 100 99 07/02/18 12:02 07/02/18 13:28 07/02/18 15:15 Temperature 98.1 F Pulse Rate 85 Respiratory Rate 20 18 16 Blood Pressure 145/80 H Pulse Oximetry 96 07/02/18 16:14 Temperature 98.2 F Pulse Rate 83 Respiratory Rate 22 Blood Pressure 102/58 L Pulse Oximetry 99 Intake & Output 07/01/18 07/02/18 07/02/18 19:59 06:59 18:59 Intake Total 5 / Balance Weight 77.111 kg Intake: IV Nuwiq Inj 3,064 UNIT In Bag/ Syringe 5 EACH @ 60 mls/hr IV. PUSH ONCE ONE Rx#:[id number] Other: Weight On Admission 77.111 kg Narrative: GENERAL: Well-nourished, well-developed patient in no apparent distress. SKIN: Warm and dry. HEAD: Atraumatic. Normocephalic. EYES: Pupils equal and round. No scleral icterus. No injection or drainage. ENT: No nasal bleeding or discharge. Mucous membranes pink and moist. NECK: Trachea midline. No JVD. CARDIOVASCULAR: Regular rate and rhythm. no rubs or gallops RESPIRATORY: No accessory muscle use. Clear to auscultation. Breath sounds equal bilaterally. GASTROINTESTINAL: Abdomen soft, non-tender, nondistended. No rebound or guarding MUSCULOSKELETAL: Extremities without clubbing, cyanosis, or edema. No obvious deformities. left elbow swelling c/w arthropathy NEUROLOGICAL: Awake and alert. No obvious cranial nerve deficits. Motor grossly within normal limits. Five out of 5 muscle strength in the arms and legs. Normal speech. PSYCHIATRIC: Appropriate mood and affect; insight and judgment normal. Results Procedures completed during hospitalization: none Labs on day of discharge: Labs from last 24 hours 07/02/18 07/02/18 07/02/18 09:20 09:20 09:20 WBC 8.5 RBC 4.46 L Hgb 12.8 L Hct 38.9 L MCV 87.2 MCH 28.7 MCHC 32.9 RDW 15.7 Plt Count 347 MPV 7.0 Neut % (Auto) 75.2 H Lymph % (Auto) 18.3 [place] % (Auto) 4.9 Eos % (Auto) 1.2 Baso % (Auto) 0.4 Neut # (Auto) 6.4 Lymph # (Auto) 1.6 [place] # (Auto) 0.4 Eos # (Auto) 0.1 Baso # (Auto) 0.0 WBC Differential . Differential Comment Auto diff final PT 10.7 INR 1.1 APTT 44.3 H Sodium 140 Potassium 4.0 Chloride 105 Carbon Dioxide 27.9 Anion Gap 7 BUN 16 Creatinine 0.92 Estimated GFR Greater than 89 Random Glucose 101 Calcium 8.7 Total Bilirubin 0.3 AST 15 ALT 25 Alkaline Phosphatase 81 Total Protein 7.2 Albumin 3.9 - Impressions ITS Impressions Elbow X-Ray 07/02/18 09:03 CONCLUSION: Persistent but stable severe arthropathy as described. No evidence of acute fracture or dislocation. Suspected joint effusion. Discharge Plan - Discharge Disposition Patient Disposition: Discharge Home - Discharge Condition Condition: Good - Discharge Order Discharge Orders: Discharge Order (Routine); Ordered 07/02/18 Ordered By: Marcos Whiteside - Discharge Details Anticipated Discharge Date: 07/02/18 Discharge Comment: discharge home today, he has a dosage at home for Factor VIII for tomorrow and follow with Doctor - Physicians Team Primary Care Provider: Primary Care Physici,No Attending Provider: Marcos Whiteside Other Providers: Fabiola Morrison MD
[2018-07-02] MEDS ORDERED: Sodium Chloride 0.9% 2 ML Flush BID IV.FLUSH SCH (21:00)
[2018-07-03] MEDS ORDERED: [UNRECOGNIZED DRUG - OTHER] IV SCH (09:00)
== END 2018-07-02 17:56 | disposition home or self-care (01) ==
LOC: NEPC 08:20 → NEDA 08:20 → NEPGCP 11:45
PROVIDERS: ADMIT Internal Medicine; ATTEND Internal Medicine

== ENCOUNTER 2018-07-22 06:29 | Observation (INO) ==
[2018-07-22] MEDS ORDERED: ANTIHEMOPHILIC FACTOR VIII IV.PUSH ONE (07:35)
[2018-07-22] MEDS ORDERED: HYDROmorphone PF Inj 2 MG/ML Vial IV.PUSH ONE ×2 (07:37→12:00)
--- NOTE | 2018-07-22 07:47 | ED ---
HPI General Chief complaint: Medical Clearance Stated complaint: Skin Time Seen by Provider: 07/22/18 07:14 Source: patient Mode of arrival: ambulatory Limitations: no limitations History of Present Illness HPI narrative: Patient is a 33 year old male, with history of hemophillia A, who comes in complaining of hemarthrosis of his left elbow. He has been here multiple times for this in the past. He just changed jobs and his insurance does not start until August 29. He is unable to get any factor at home due to this problem. He denies any injuries. He denies any other pain or issues. He denies fever or chills. Severity is mild to moderate. Related Data Home Medications Medication Instructions Recorded Confirmed antihemophil FVIII,full length 3,000 units IV QID 04/27/18 07/22/18 [Advate] oxycodone 30 mg PO Q4-6H PRN 04/27/18 07/22/18 Previous Rx's Medication Instructions Recorded antihemophil FVIII,full length 3,000 unit IV.SIG QID #1 each 07/22/18 [Advate] oxycodone 30 mg PO Q6H PRN #24 tab 07/22/18 Allergies Allergy/AdvReac Type Severity Reaction Status Date / Time aspirin Allergy Intermediate Bleeding Verified 07/22/18 06:30 codeine Allergy Intermediate Rash Verified 07/22/18 06:30 morphine Allergy Intermediate Rash Verified 07/22/18 06:30 NSAIDS (Non-Steroidal Allergy Intermediate Bleeding Verified 07/22/18 06:30 Anti-Inflamma Sulfa (Sulfonamide Allergy Unknown Rash Verified 07/22/18 06:30 Antibiotics) Review of Systems ROS: all other systems reviewed are negative Constitutional Denies chills and Denies fever(s) ENT Denies dizziness Cardiovascular Denies chest pain and Denies dyspnea Respiratory Denies cough Gastrointestinal Denies abdominal pain, Denies nausea and Denies vomiting Musculoskeletal Reports arthralgias Integumentary/Breasts Denies sores and Denies wounds Neurologic Denies focal weakness and Denies numbness PMFSH Medical History Medical History Hemophilia (Acute) Surgical History Surgical History History of left knee replacement (Acute) History of total left knee replacement (Acute) Family History Family History Other Family history normal Social History Social History Substance History: No History of Abuse Second Hand Smoke Exposure: No Smoking Status: Never smoker Tobacco Type: Cigarettes How Often Do You Have a Drink Containing Alcohol: Never Recent Travel in [facility] within the Last 8 Weeks: No Recent Out of Country Travel within the Last 8 Weeks: No Immunization History Tetanus Immunization: Unsure Exam Narrative Exam Narrative: GENERAL: Awake and alert, in no acute distress. SKIN: Focused skin assessment warm/dry. HEAD: Atraumatic. Normocephalic. EYES: Pupils equal and round. No scleral icterus. No injection or drainage. ENT:Mucous membranes pink and moist. NECK: Trachea midline. No JVD. CARDIOVASCULAR: Regular rate and rhythm. No murmur appreciated. RESPIRATORY: No accessory muscle use. Clear to auscultation. Breath sounds equal bilaterally. GASTROINTESTINAL: Abdomen soft, non-tender, nondistended. MUSCULOSKELETAL: No obvious deformities. No clubbing. No cyanosis. Edema and tenderness of the left elbow. No erythema or warmth of the elbow. NEUROLOGICAL: Awake and alert. No obvious cranial nerve deficits. Motor grossly within normal limits. Normal speech. PSYCHIATRIC: Appropriate mood and affect; insight and judgment normal. Course Initial Documented Vital Signs Temperature 97.8 F 07/22/18 06:30 Pulse Rate 84 07/22/18 06:30 Respiratory Rate 16 07/22/18 06:30 Blood Pressure 154/87 H 07/22/18 06:30 Pulse Oximetry 98 07/22/18 06:30 Last Documented Vital Signs Temperature 98.5 F 07/22/18 16:00 Pulse Rate 77 07/22/18 16:00 Respiratory Rate 16 07/22/18 16:00 Blood Pressure 141/85 H 07/22/18 16:00 Pulse Oximetry 96 07/22/18 16:00 Medical Decision Making MDM Narrative Medical decision making narrative: Patient is a 33 year old male with history of hemophilia A, who comes in complaining of bleeding in his left elbow joint. Given pain medicine. Labs sent show elevated PTT. Given Factor VIII. will be placed in observation for repeat dosing. Medical Screen Exam Complete: Yes Emergency Medical Condition: Yes Differential Diagnosis Differential Diagnosis: hemarthrosis vs chronic pain vs injury Medical Records Medical records reviewed: Yes I reviewed the patient's medical records. Lab Data Lab results reviewed: Yes I reviewed the patient's lab results. Result diagrams: 07/22/18 08:15 07/22/18 08:15 Lab Results 07/22/18 07/22/18 07/22/18 Range/Units 08:15 08:15 08:15 WBC 6.1 (4.0-11.0) th/mm3 RBC 4.58 (4.50-5.90) mil/mm3 Hgb 13.2 (13.0-17.0) gm/dL Hct 39.9 (39.0-51.0) % MCV 87.2 (80.0-100.0) fL MCH 28.8 (27.0-34.0) pg MCHC 33.0 (32.0-36.0) % RDW 15.4 (11.6-17.2) % Plt Count 289 (150-450) th/mm3 MPV 7.3 (7.0-11.0) fL Neut % (Auto) 61.3 (16.0-70.0) % Lymph % (Auto) 31.0 (9.0-44.0) % [place] % (Auto) 6.0 (0.0-8.0) % Eos % (Auto) 1.2 (0.0-4.0) % Baso % (Auto) 0.5 (0.0-2.0) % Neut # (Auto) 3.7 (1.8-7.7) th/mm3 Lymph # (Auto) 1.9 (1.0-4.8) th/mm3 [place] # (Auto) 0.4 (0.0-0.9) th/mm3 Eos # (Auto) 0.1 (0.0-0.4) th/mm3 Baso # (Auto) 0.0 (0.0-0.2) th/mm3 WBC Differential . Differential Comment Auto diff final PT 10.9 (9.8-11.6) sec INR 1.1 Ratio APTT 85.0 H (23.4-31.7) sec Sodium 142 (136-145) meq/L Potassium 4.0 (3.5-5.1) meq/L Chloride 109 H (98-107) meq/L Carbon Dioxide 25.9 (21.0-32.0) meq/L Anion Gap 7 (5-15) meq/L BUN 17 (7-18) mg/dL Creatinine 0.98 (0.60-1.30) mg/dL Estimated GFR 89 (>89) mL/min Random Glucose 102 (74-106) mg/dL Calcium 8.8 (8.5-10.1) mg/dL Total Bilirubin 0.3 (0.2-1.0) mg/dL AST 25 (15-37) U/L ALT 36 (12-78) U/L Alkaline Phosphatase 77 (45-117) U/L Total Protein 7.2 (6.4-8.2) g/dL Albumin 3.8 (3.4-5.0) g/dL Discharge Plan Discharge Disposition Patient Disposition: 01 Discharge Home Discharge Condition Condition: Stable Discharge Order Discharge Orders: Discharge Order (Routine); Ordered 07/22/18 Ordered By: Guilherme Almaraz Discharge Details Anticipated Discharge Date: 07/22/18 Physicians Team ED Provider: Cherrie Monzon Primary Care Provider: Primary Care Susan Lara Attending Provider: Guilherme Almaraz Status ED Status: Left Department Discharge Information Discharge Date/Time: 07/22/18 13:20
[2018-07-22] MEDS ORDERED: [UNRECOGNIZED DRUG - REMARK] IV.PUSH ONE (08:15)
[2018-07-22 08:37] LABS: Baso % (Auto) 0.5 % (0.0-2.0); Eos # (Auto) 0.1 th/mm3 (0.0-0.4); Eos % (Auto) 1.2 % (0.0-4.0); Hematocrit 39.9 % (39.0-51.0); Hemoglobin 13.2 gm/dL (13.0-17.0); Lymph # (Auto) 1.9 th/mm3 (1.0-4.8); Mean Corpuscular Hemoglobin 28.8 pg (27.0-34.0); Mean Corpuscular Volume 87.2 fL (80.0-100.0); Mean Platelet Volume 7.3 fL (7.0-11.0); Mono # (Auto) 0.4 th/mm3 (0.0-0.9); Neut # (Auto) 3.7 th/mm3 (1.8-7.7); Neut % (Auto) 61.3 % (16.0-70.0); Platelet Count 289 th/mm3 (150-450); Red Blood Count 4.58 mil/mm3 (4.50-5.90); Red Cell Distribution Width 15.4 % (11.6-17.2); White Blood Count 6.1 th/mm3 (4.0-11.0)
[2018-07-22 08:48] LABS: Albumin 3.8 g/dL (3.4-5.0); Anion Gap 7 meq/L (5-15); Aspartate Aminotransferase 25 U/L (15-37); Blood Urea Nitrogen 17 mg/dL (7-18); Calcium 8.8 mg/dL (8.5-10.1); Carbon Dioxide 25.9 meq/L (21.0-32.0); Chloride 109 meq/L (98-107); Glomerular Filtration Rate 89 mL/min (>89); Glucose,Random 102 mg/dL (74-106); Sodium 142 meq/L (136-145)
[2018-07-22 08:49] LABS: Alanine Aminotransferase 36 U/L (12-78)
[2018-07-22 08:51] LABS: Alkaline Phosphatase 77 U/L (45-117); Total Protein 7.2 g/dL (6.4-8.2)
[2018-07-22 09:03] LABS: INR 1.1 Ratio; Prothrombin Time 10.9 sec (9.8-11.6)
[2018-07-22] MEDS ORDERED: Acetaminophen 325 MG Tablet PO PRN (11:53)
[2018-07-22] MEDS ORDERED: Sodium Chloride 0.9% 2 ML Flush PRN IV.FLUSH (11:57)
[2018-07-22] MEDS ORDERED: Sod Chloride 0.9% Inj 1,000 ML IV.CONT SCH (12:00)
--- NOTE | 2018-07-22 12:12 | P.HPIM ---
History of Present Illness Primary Care Physician: No Primary Care Physician History of Present Illness: Mr. Colindres is a 33-year-old male. He is coming into the emergency department with a left hemarthrosis at his elbow. He has hemophilia A at baseline and hemarthrosis is a recurrent problem for him typically affecting his left elbow. Previously it had affected his left knee but status post left knee replacement she no longer has hemarthrosis at that joint. He says for 2 days his left elbow has been bothering him secondary to the hemarthrosis. He does not have access to anti-hemophilic options as an outpatient due to running out of insurance. Insurance will be renewed again as of August. No other complaints or health conditions. He says it typically takes 2 doses of factor VIII to treat his left elbow hemarthrosis. Review of Systems Constitutional: No fevers, no chills no night sweats, no fatigue, no weakness Eyes: No eye pain, no blurry vision, no loss of vision ENT: No sore throat, no ear pain, no rhinorrhea Cardiovascular: No chest pain, no tachycardia, no palpitations, no syncope Respiratory: No wheezing, no cough, no shortness of breath Gastrointestinal: No abdominal pain, no black tarry stools, no bright red blood per rectum, no vomiting, no diarrhea Musculoskeletal: no muscle cramps, left elbow swelling and pain with decreased range of motion secondary to stiffness. Integumentary: No rash, no ulcers, no drainage Neurologic: No sensory loss, no loss of motor function, no dizziness Psychiatric: No behavioral changes, no hallucinations, no suicidal ideations PMFSH - History History Provided By: Patient - Medical History Medical History: Medical History (Last Reviewed 07/22/18 @ 07:52 by Cherrie Monzon MD) Hemophilia (Acute) - Surgical History Surgical History: Surgical History (Last Reviewed 07/22/18 @ 07:52 by Cherrie Monzon MD) History of left knee replacement (Acute) History of total left knee replacement - Family History Family History: Family History (Last Reviewed 07/22/18 @ 07:52 by Cherrie Monzon MD) Other Family history normal - Tobacco History Second Hand Smoke Exposure: No Smoking Status: Never smoker Tobacco Type: Cigarettes - Alcohol History How Often Do You Have a Drink Containing Alcohol: Never - Substance Use History Substance History: No History of Abuse - Travel History Recent Travel in the [place] Within the Last 8 Weeks: No Recent Travel Out of the Country Within the Last 8 Weeks: No - Immunization History Tetanus Immunization: Unsure Medications and Allergies Active Medications: Active Medications Acetaminophen (Tylenol) 650 mg PO Q4H PRN PRN Reason: Temp > 100.4 Al Hydroxide/Mg Hydroxide (Milk Of Nery Liq) 30 ml PO Q12H PRN PRN Reason: Mild Constipation Diphenhydramine HCl (Benadryl Inj) 25 mg IV.PUSH Q4H PRN PRN Reason: With Dilaudid Dosings Hydromorphone HCl (Dilaudid Pf Inj) 2 mg IV.PUSH Q4H PRN PRN Reason: BREAKTHROUGH PAIN Sodium Chloride (Ns Inj) 1,000 mls @ 100 mls/hr IV.CONT .Q10H MEGAN Non-Formulary Medication (Non-Formulary Drug) 1 each IV.PUSH ONCE ONE Stop: 07/22/18 14:01 Ondansetron HCl (Zofran Inj) 4 mg IV.PUSH Q6H PRN PRN Reason: NAUSEA OR VOMITING Oxycodone HCl (Roxicodone) 30 mg PO Q6H PRN PRN Reason: Pain 3 to 10 Sodium Chloride (Ns Flush) 2 ml IV.FLUSH BID MEGAN Sodium Chloride (Ns Flush) 2 ml IV.FLUSH PRN PRN PRN Reason: FLUSH AFTER USING IV ACCESS Allergies Allergy/AdvReac Type Severity Reaction Status Date / Time aspirin Allergy Intermediate Bleeding Verified 07/22/18 06:30 codeine Allergy Intermediate Rash Verified 07/22/18 06:30 morphine Allergy Intermediate Rash Verified 07/22/18 06:30 NSAIDS (Non-Steroidal Allergy Intermediate Bleeding Verified 07/22/18 06:30 Anti-Inflamma Sulfa (Sulfonamide Allergy Unknown Rash Verified 07/22/18 06:30 Antibiotics) Home Medications Medication Instructions Recorded Confirmed Type antihemophil FVIII,full length 3,000 units IV QID 04/27/18 07/22/18 History [Advate] oxycodone 30 mg PO Q4-6H PRN 04/27/18 07/22/18 History Exam Vital signs: Vital Signs 07/22/18 06:30 07/22/18 08:22 07/22/18 09:34 Temperature 97.8 F Pulse Rate 84 87 Respiratory Rate 16 18 16 Blood Pressure 154/87 H 141/88 H Pulse Oximetry 98 98 Intake & Output 07/21/18 07/22/18 07/22/18 18:59 06:59 18:59 Weight 78.471 kg Narrative: GENERAL: NAD, A&Ox3 HEAD: Normocephalic. NECK: Supple, trachea midline. No lymphadenopathy. EYES: No scleral icterus. No injection or drainage. CARDIOVASCULAR: Regular rate and rhythm without murmurs, gallops, or rubs. RESPIRATORY: Breath sounds equal bilaterally. No accessory muscle use. GASTROINTESTINAL: Abdomen soft, non-tender, nondistended. MUSCULOSKELETAL: No cyanosis, or edema. Swelling and tenderness at left elbow. SKIN: Warm and dry. NEURO: No focal neurological deficits. Results - Labs CBC & Chem 7: 07/22/18 08:15 07/22/18 08:15 Labs: Short CBC 07/22/18 Range/Units 08:15 WBC 6.1 (4.0-11.0) th/mm3 Hgb 13.2 (13.0-17.0) gm/dL Hct 39.9 (39.0-51.0) % Plt Count 289 (150-450) th/mm3 BMP 07/22/18 08:15 Sodium 142 Potassium 4.0 Chloride 109 H Carbon Dioxide 25.9 BUN 17 Creatinine 0.98 Calcium 8.8 Liver Function 07/22/18 Range/Units 08:15 Total Bilirubin 0.3 (0.2-1.0) mg/dL AST 25 (15-37) U/L ALT 36 (12-78) U/L Alkaline Phosphatase 77 (45-117) U/L Albumin 3.8 (3.4-5.0) g/dL Caprini VTE Risk Assessment Caprini VTE Risk Assessment: No/Low Risk (score <= 1) Caprini Risk Assessment Model: Point Value = 1 Point Value = 2 Point Value = 3 Point Value = 5 Age 41-60 Minor surgery BMI > 25 kg/m2 Swollen legs Varicose veins or History of unexplained or recurrent spontaneous Oral contraceptives or hormone replacement Sepsis (< 1 month) Serious lung disease, including pneumonia (< 1 month) Abnormal pulmonary function Acute myocardial infarction Congestive heart failure (< 1 month) History of inflammatory bowel disease Medical patient at bed rest Age 61-74 Arthroscopic surgery Major open surgery (> 45 min) Laparoscopic surgery (> 45 min) Malignancy Confined to bed (> 72 hours) Immobilizing plaster cast Central venous access Age >= 75 History of VTE Family history of VTE Factor V Leiden Prothrombin [id number] Lupus anticoagulant Anticardiolipin antibodies Elevated serum homocysteine Heparin-induced thrombocytopenia Other congenital or acquired thrombophilia Stroke (< 1 month) Elective arthroplasty Hip, pelvis, or leg fracture Acute spinal cord injury (< 1 month) Prophylaxis Regimen: Total Risk Factor Score Risk Level Prophylaxis Regimen 0-1 Low Early ambulation 2 Moderate Order ONE of the following: *Sequential Compression Device (SCD) *Heparin 5000 units SQ BID 3-4 Higher Order ONE of the following medications: *Heparin 5000 units SQ TID *Enoxaparin/Lovenox 40 mg SQ daily (WT < 150 kg, CrCl > 30 mL/min) *Enoxaparin/Lovenox 30 mg SQ daily (WT < 150 kg, CrCl > 10-29 mL/min) *Enoxaparin/Lovenox 30 mg SQ BID (WT < 150 kg, CrCl > 30 mL/min) AND/OR *Sequential Compression Device (SCD) 5 or more Highest Order ONE of the following medications: *Heparin 5000 units SQ TID (Preferred with Epidurals) *Enoxaparin/Lovenox 40 mg SQ daily (WT < 150 kg, CrCl > 30 mL/min) *Enoxaparin/Lovenox 30 mg SQ daily (WT < 150 kg, CrCl > 10-29 mL/min) *Enoxaparin/Lovenox 30 mg SQ BID (WT < 150 kg, CrCl > 30 mL/min) AND *Sequential Compression Device (SCD) Assessment and Plan - Plan 33-year-old male admitted secondary to left elbow hemarthrosis with chronic hemophilia a Left elbow hemarthrosis Hemophilia A Left Elbow Pain Continue pain treatments with oxycodone and breakthrough Dilaudid IV Factor VIII infusion (ADVATE) every 6 hours (provided at 8 AM and will be provided again at 2 PM) Further factor VIII infusions will be based on symptoms Follow clinically This patient is not a candidate for NSAIDs Not a candidate for anticoagulation DVT prophylaxis As stated above not a candidate for anticoagulation
[2018-07-22] MEDS ORDERED: ANTIHEMOPHILIC FACTOR IV.PUSH ONE ×2 (14:00→14:15)
[2018-07-22] MEDS ORDERED: HYDROmorphone PF Inj 2 MG/ML Vial IV.PUSH PRN (16:00)
--- NOTE | 2018-07-22 16:27 | P.DS ---
Date of admission: 07/22/18 12:13 Primary care physician: No Primary Care Physician Brief History from admission: Mr. Colindres is a 33-year-old male. He is coming into the emergency department with a left hemarthrosis at his elbow. He has hemophilia A at baseline and hemarthrosis is a recurrent problem for him typically affecting his left elbow. Previously it had affected his left knee but status post left knee replacement she no longer has hemarthrosis at that joint. He says for 2 days his left elbow has been bothering him secondary to the hemarthrosis. He does not have access to anti-hemophilic options as an outpatient due to running out of insurance. Insurance will be renewed again as of August. No other complaints or health conditions. He says it typically takes 2 doses of factor VIII to treat his left elbow hemarthrosis. DS: Medications - Discharge Medications Prescriptions: antihemophil FVIII,full length [Advate] 3,000 unit IV.SIG QID #1 each oxycodone 30 mg PO Q6H PRN #24 tab PRN Reason: Pain DS: Summary Hospital Course: Mr. Colindres is a 33-year-old male. He was admitted secondary to hemarthrosis of the left elbow related to his hemophilia A. 2 doses of recombinant factor VIII were provided at 8 AM and 2 PM today. After the second dose patient says he is feeling better. He typically uses 2 doses to resolve his hemarthrosis. At this point he is medically stable and cleared for discharge to home. - Time Spent with Patient Total time spent providing and/or coordinating discharge services: Less than 30 minutes Exam Vital signs: Vital Signs 07/22/18 06:30 07/22/18 08:22 07/22/18 09:34 Temperature 97.8 F Pulse Rate 84 87 Respiratory Rate 16 18 16 Blood Pressure 154/87 H 141/88 H Pulse Oximetry 98 98 07/22/18 12:00 Temperature Pulse Rate 77 Respiratory Rate 14 Blood Pressure 139/71 Pulse Oximetry 99 Intake & Output 07/21/18 07/22/18 07/22/18 18:59 06:59 18:59 Weight 78.471 kg Results Procedures completed during hospitalization: none Labs on day of discharge: Labs from last 24 hours 07/22/18 07/22/18 07/22/18 08:15 08:15 08:15 WBC 6.1 RBC 4.58 Hgb 13.2 Hct 39.9 MCV 87.2 MCH 28.8 MCHC 33.0 RDW 15.4 Plt Count 289 MPV 7.3 Neut % (Auto) 61.3 Lymph % (Auto) 31.0 [place] % (Auto) 6.0 Eos % (Auto) 1.2 Baso % (Auto) 0.5 Neut # (Auto) 3.7 Lymph # (Auto) 1.9 [place] # (Auto) 0.4 Eos # (Auto) 0.1 Baso # (Auto) 0.0 WBC Differential . Differential Comment Auto diff final PT 10.9 INR 1.1 APTT 85.0 H Sodium 142 Potassium 4.0 Chloride 109 H Carbon Dioxide 25.9 Anion Gap 7 BUN 17 Creatinine 0.98 Estimated GFR 89 Random Glucose 102 Calcium 8.8 Total Bilirubin 0.3 AST 25 ALT 36 Alkaline Phosphatase 77 Total Protein 7.2 Albumin 3.8 Discharge Plan - Discharge Disposition Patient Disposition: 01 Discharge Home - Discharge Condition Condition: Stable - Discharge Order Discharge Orders: Discharge Order (Routine); Ordered 07/22/18 Ordered By: Guilherme Almaraz - Discharge Details Anticipated Discharge Date: 07/22/18 - Physicians Team Primary Care Provider: Primary Care Marco,No Attending Provider: Guilherme Almaraz
[2018-07-22] MEDS ORDERED: Sodium Chloride 0.9% 2 ML Flush BID IV.FLUSH SCH (21:00)
== END 2018-07-22 17:04 | disposition home or self-care (01) ==
LOC: NEDA 06:29 → NEPE 06:29 → NEDA 13:20 → NEPFCDU 13:30
PROVIDERS: ADMIT Hospitalist; ATTEND Hospitalist